=== PATIENT | female | born 1960 | race Caucasian/White ===

== ENCOUNTER 2017-03-24 14:59 | Inpatient (IN) | payer MEDICAID, SELFPAY ==
[2017-03-24 15:00] VITALS: BP 118/72; PULSE 118; RESP 24; TEMP 36.9; O2SAT 98; BMI 33.3
--- NOTE | 2017-03-24 15:12 | CT_ITS ---
CT abdomen pelvis wo con Ordering Physician: Duran Wagner MD. Patient Age: 56 years: Female HISTORY: No specific history given by patient ITS. : fall, lower back pain abdominal pain unable to get good history of Fall with lower back pain middle status changes. Patient sedated for the scan. Combative. TECHNIQUE: Helical CT scanning performed the abdomen pelvis with no oral nor IV contrast utilized. COMPARISON :None FINDINGS There is motion artifact on this scan but this feature does not significantly interfere with interpretation of internal structures but does interfere with evaluating osseous pelvis.. Lung bases appear clear with no active disease. Abdomen/pelvis. Lack of oral and IV contrast decreases sensitivity,. Liver. No focal lesion. diffuse fatty changes. A generous left lobe extends across midline to reside anterior to the spleen.Slightly scalloped contour of the liver in some areas raises question of early cirrhotic changes. Correlation required. In fact and question there could be some early developing portal venous collaterals medial to the spleen inferior to the left adrenal. These can be better evaluated postcontrast of renal function improves Spleen. Upper normal to borderline increased overall volume.. 15 cm height near 10 mm AP and 9 cm transverse. Pancreas. Unremarkable on this limited noncontrast study. Previous cholecystectomy. No bili ductal dilatation evident. Kidneys. No urinary tract calculi nor obstruction. Ureters unremarkable GI tract. No bowel dilatation or obstruction. Diverticulosis most extensive at the sigmoid colon with scattered diverticuli throughout the left colon. Minimal stool majority of colon. Moderate stool rectum. Small bowel appears normal. No evidence of appendicitis. Osseous no acute findings in the spine.. AP view of hips unremarkable. Motion artifact most likely accounts for irregularity at the region of acetabulum and elsewhere at pelvis bilateral. Pelvis. Long thin uterus. No adnexal masses. Moderate distended bladder ======= IMPRESSION: ======= 1. No discrete acute findings abdomen or pelvis 2.. Fatty changes with possible early cirrhotic changes liver: ... Slightly scalloped margin in some portions of liver may reflect early cirrhotic change. Requires clinical correlation. ... Borderline enlargement spleen, spleen which measures 15 cm length maximally but modest in the other dimensions . Also Question some early portal venous collaterals medial to the spleen 2. Diverticulosis most evident sigmoid and left colon but no diverticulitis 3. No evidence of appendicitis
--- NOTE | 2017-03-24 15:13 | PC.NURSE ---
pt to ct
--- NOTE | 2017-03-24 15:22 | PC.NURSE ---
PT BROUGHT BACK TO ROOM FROM CT, RAD STAFF STATED UNABLE TO OBTAIN CTS ON PT AT THIS TIME R/T PT WILL NOT HOLD STILL FOR SCANS. ER AWARE AND HAS PLACED ORDERS FOR MEDICATIONS FOR PT.
--- NOTE | 2017-03-24 15:41 | XR_ITS ---
XR chest AP Ordering Physician: Duran Wagner MD Patient Age: 56 years: Female HISTORY: ITS.REASON: COUGH TECHNIQUE: AP upright chest. COMPARISON : FINDINGS No focal pneumonia. Slight coarsening markings reflecting the distal technique on today's study with no definitive focal pneumonia There is question of a vague round density projected over the anterior third rib 9 mm size.. I believe this was present a old chest films of the helpful to confirm stability as it could merely be a granuloma. However with no prior CXR studies this will warrant follow-up CT chest subsequently possibly as outpatient. Mild cardiomegaly. No CHF Thelma and mediastinal structures satisfactory. Mild undulation of the lateral seventh rib likely reflects an old healed fracture. IMPRESSION: --------- 1. No focal pneumonia. Mild Cardiomegaly.. No CHF 2. Suspect Subtle lung nodules bilateral. Nonspecific ... Vague 9 mm round nodule at right upper chest, projected over right anterior third rib.. ... On Final review I question there could be a similar 1 cm left lung nodule (vs vascular structure) projected over the posterior LEFT seventh rib. Comparison to any outside old chest films may be helpful, but if none available would suggest CT chest to further evaluate 3. Old healed left rib fracture noted
[2017-03-24 15:56] LABS: Basophils # 0.1 K/mm3 (0-0.2); Basophils % 0.3 % (0.1-2.0); Eosinophils # 0.1 K/mm3 (0.0-0.4); Eosinophils % 0.6 % (0.1-12.0); Hematocrit 44.2 % (37.0-47.0); Lymphocytes # 0.9 K/mm3 (0.7-4.5); Mean Corpuscular HGB Conc 33.9 g/dL (31.8-35.4); Mean Corpuscular Hemoglobin 31.5 pg (27.0-31.2); Mean Corpuscular Volume 92.7 fl (81-99); Mean Platelet Volume 8.9 fl (7.4-10.4); Monocytes # 0.7 K/mm3 (0.1-1.0); Monocytes % 4.2 % (1.7-9.3); Neutrophils # 13.9 K/mm3 (1.8-7.8); Platelet Count 106 K/mm3 (142-424); Red Blood Count 4.77 M/mm3 (4.20-5.40); Red Cell Distribution Width 13.4 % (11.5-17.5); White Blood Count 15.7 K/mm3 (4.8-10.8)
[2017-03-24 15:56] LABS: POC Glucose,Bedside 81 mg/dL
--- NOTE | 2017-03-24 15:57 | PC.NURSE ---
PT TO CT AGAIN AT THIS TIME.
[2017-03-24 16:01] LABS: MANUAL DIFFERENTIAL MANUAL DIFFERENTIAL (MANUAL DIFF)
--- NOTE | 2017-03-24 16:03 | CT_ITS ---
CT HEAD/BRAIN wo contrast Helical acquisition with reconstruction images in 3 planes Ordering Physician: Duran Wagner MD Patient Age: 56 years: Female HISTORY: ITS.REASON: AMSfall. Back pain no status change. Patient was sedated for scant TECHNIQUE: Helical thin section CT scanning head was performed due to the the patient's motion. From these acquired helical images, reconstruction axial, sagittal and coronal images created/ performed. Both Brain and bone windows in the axial plane submitted-76 CPT COMPARISON: No previous head CT studies FINDINGS. No acute intracranial findings. No hemorrhage. No mass. No territorial infarct. No extra-axial or subdural collection. Mild cerebral atrophy most evident towards convexity to left of midline as seen on coronal & sagittal view noted. Question some mild chronic small vessel ischemic gliotic changes within deep white matter at periventricular regions. Equivocal Posterior fossa. There is minimal linear calcification which related to choroid which continues towards and through foraminaLuska bilateral. . The skull appears intact no fracture evident IMPRESSION------- No acute intracranial findings. No hemorrhage evident. No Subdural or extra-axial collection The skull is intact . Minor cerebral atrophy most evident towards convexity . Suspect early, mild chronic small vessel deep white matter ischemic gliotic changes.
[2017-03-24 16:06] LABS: Alanine Aminotransferase 45 U/L (12-78); Albumin/Globulin Ratio 0.8 (1.1-1.8); Alkaline Phosphatase 85 U/L (46-116); Amylase 13 U/L (25-125); Anion Gap 17.2 mEq/L (5-15); Aspartate Amino Transferase 57 U/L (15-37); Blood Urea Nitrogen 34 mg/dL (7-18); Calcium 8.8 mg/dL (8.5-10.1); Carbon Dioxide 24 mmol/L (21.0-32.0); Chloride 102 mmol/L (98-107); Creatinine Clearance Estimated 49 mL/min (0-300); Creatinine,Serum 1.84 mg/dL (0.55-1.02); Estimated Glomerular Filt Rate 28 ml/min (>60); GFR (African American) 34 ML/MIN (>60); Glucose 92 mg/dL (74-106); Lipase 68 u/L (73-393); Potassium 4.2 mmoL/L (3.5-5.1); Sodium 139 mmol/L (136-145)
[2017-03-24 16:07] LABS: Ammonia 19 umol/L (19-54)
[2017-03-24 16:36] LABS: Lymphocytes % 14 % (10-50); Monocytes % 11 % (2-9); Neutrophils % 61 % (42-76); Platelet Estimate Marked Decrease; RBC Morphology Normal; Total Cells Counted 100
--- NOTE | 2017-03-24 16:54 | HMH.EDGENADL ---
ED Disposition Clinical Impression: Agitation Reactive airway disease with acute exacerbation Qualifiers: Asthma severity: mild Asthma persistence: persistent Qualified Code(s): J45.31 - Mild persistent asthma with (acute) exacerbation Acute bronchitis Qualifiers: Bronchitis organism: unspecified organism Qualified Code(s): J20.9 - Acute bronchitis, unspecified UTI (urinary tract infection) Qualifiers: Urinary tract infection type: acute cystitis Hematuria presence: without hematuria Qualified Code(s): N30.00 - Acute cystitis without hematuria Disposition: Admitted As Inpatient Condition on Discharge: Good Time of Disposition: 18:13 - Critical Care Critical Care Time: No Attestation: On 03/24/17, the high probability of a clinically significant, sudden or life threatening deterioration of the following system(s) required my full and direct attention, intervention and personal management. The time I documented below is in addition to time spent performing reported procedures but includes the following listed in this critical care notation. Medical Decision Making - Medical Records Medical records reviewed: Yes: I reviewed the patient's medical records. Vital Signs: 03/24/17 15:00 03/24/17 17:15 03/24/17 17:44 Temperature 98.4 F 98.4 F Temperature Source Oral Oral Pulse Rate 110 H Pulse Rate [Right Brachial] 118 H 97 H Respiratory Rate 24 22 Blood Pressure Blood Pressure [Left Arm] 118/72 91/55 Blood Pressure Mean [Left Arm] 87 67 Blood Pressure Source Blood Pressure Source [Left Arm] Automatic Cuff Blood Pressure Position Blood Pressure Position [Left Arm] Sitting 02 Sat by Pulse Oximetry 98 93 L Oxygen Delivery Method Room Air Room Air 03/24/17 19:05 Temperature 98.4 F Temperature Source Pulse Rate 116 H Pulse Rate [Right Brachial] Respiratory Rate 22 Blood Pressure 116/86 Blood Pressure [Left Arm] Blood Pressure Mean [Left Arm] Blood Pressure Source Manual Cuff/ Doppler Blood Pressure Source [Left Arm] Blood Pressure Position Sitting Blood Pressure Position [Left Arm] 02 Sat by Pulse Oximetry Oxygen Delivery Method Room Air - Lab Data Lab Results 03/24/17 15:30: WBC 15.7 H, RBC 4.77, Hgb 15.0, Hct 44.2, MCV 92.7, MCH 31.5 H, MCHC 33.9, RDW 13.4, Plt Count 106 L, MPV 8.9, Neut % (Auto) 89.0 H, Lymph % (Auto) 6.0 L, [place] % (Auto) 4.2, Eos % (Auto) 0.6, Baso % (Auto) 0.3, Neut # (Auto) 13.9 H, Lymph # (Auto) 0.9, [place] # (Auto) 0.7, Eos # (Auto) 0.1, Baso # (Auto) 0.1, Total Counted 100, Neutrophils % (Manual) 61, Band Neutrophils % 12.0 H, Lymphocytes % (Manual) 14, Monocytes % (Manual) 11 H, Metamyelocytes % 2.0 H, Platelet Estimate Marked decrease, RBC Morphology Normal 03/24/17 15:43: POC Glucose 81 03/24/17 15:45: Sodium 139, Potassium 4.2, Chloride 102, Carbon Dioxide 24, Anion Gap 17.2 H, BUN 34 H, Creatinine 1.84 H, Estimated Creat Clear 49, Estimated GFR 28 L, Est GFR ( Amer) 34 L, Glucose 92, Calcium 8.8, Total Bilirubin 2.0 H, AST 57 H, ALT 45, Alkaline Phosphatase 85, Total Protein 7.0, Albumin 3.0 L, Globulin 4.0 H, Albumin/Globulin Ratio 0.8 L, Amylase 13 L, Lipase 68 L 03/24/17 15:45: Ammonia 19 03/24/17 17:56: Urine Color Dark yellow, Urine Appearance Slightly cloudy, Urine pH 5.5, Ur Specific [place] > 1.030 H, Urine Protein Trace, Urine Glucose (UA) Negative, Urine Ketones Trace, Urine Blood Negative, Urine Nitrate Positive A, Urine Bilirubin 2+ A, Urine Urobilinogen 2.0, Ur Leukocyte Esterase Negative, Urine RBC Occasional, Urine WBC 3-5, Ur Squamous Epith Cells Occasional, Urine Bacteria 3+, Hyaline Casts 10-20 03/24/17 17:56: Urine Opiates Screen Negative, Ur Barbituates Screen Negative, Ur Phencyclidine Scrn Negative, Ur Amphetamines Screen Negative, U Methamphetamines Scrn Negative, U Benzodiazepines Scrn Negative, Urine Cocaine Screen Negative, U Marijuana (THC) Screen Negative Result diagrams: 03/25/17 10:55 03/25/17 10:55 Orders (
[2017-03-24 17:15] VITALS: BP 91/55; PULSE 97; RESP 22; TEMP 36.9; O2SAT 93
[2017-03-24 17:44] VITALS: PULSE 110
--- NOTE | 2017-03-24 18:07 | PC.NURSE ---
SAFETY ATTENDANT PAGED DR. POOL WHO IS [employer] MANAGER FOR DR. LANDEROS
[2017-03-24 18:09] LABS: Amphetamine/Metha Screen,Urine Negative ng/mL (<1000); Barbiturates Screen,Urine Negative ng/mL (<200); Benzodiazepines Screen,Urine Negative ng/mL (200); Cannabinoid Screen,Urine Negative ng/mL (<50); Cocaine Screen,Urine Negative ng/g (<300); Methadone Screen,Urine Negative ng/mL (<300); Opiate Screen,Urine Negative ng/mL (<300); Phencyclidine Screen,Urine Negative ng/mL (<25)
[2017-03-24 18:11] LABS: Bacteria,Urine 3+ /lpf; Microscopic, Urine URINE MICROSCOPIC (MICROSCOPIC); RBC,Urine Occasional #/hpf (0-3); Squamous Epithelial Cell,Urine Occasional #/hpf (0-5)
[2017-03-24 18:12] LABS: Appearance,Urine Slightly Cloudy (Clear); Blood, Urine Negative (Negative); Color,Urine Dark Yellow (Yellow); Glucose,Urine (UA) Negative (Negative); Ketones,Urine Trace (Negative); Nitrate,Urine Positive (Negative); PH,Urine 5.5 (5.0-8.5); Protein,Urine Trace (Negative); Specific Gravity, Urine > 1.030 (1.005-1.030)
[2017-03-24 18:13] LABS: Bilirubin,Urine 2+ (Negative); Leukocyte Esterase,Urine Negative (Negative)
--- NOTE | 2017-03-24 18:25 | PC.NURSE ---
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 pt to be placed in 212 for reactive airway disease and acute bronchitis for observation by dr hahn for dr ku. 2nd floor notiifed at 1824
--- NOTE | 2017-03-24 18:42 | PC.NURSE ---
REPORT CALLED TO JULY JUAREZ ON SECOND FLOOR AT THIS TIME.
[2017-03-24 19:05] VITALS: BP 116/86; PULSE 116; RESP 22; TEMP 36.9; O2SAT 94
[2017-03-24 21:57] VITALS: BP 103/67; PULSE 95; RESP 22; TEMP 36.3; O2SAT 97; BMI 37.0
[2017-03-25] VITALS (9 sets, daily range): BP systolic 96–136; BP diastolic 54–80; PULSE 71–110; RESP 20–22; TEMP 36.4–36.6; O2SAT 90–93
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
--- NOTE | 2017-03-25 04:29 | PC.NURSE ---
Pt confused at this time. No family here at this time. Brochure given and placed in packet for family to review upon visitation
--- NOTE | 2017-03-25 05:30 | PC.NURSE ---
PT FOUND ON FLOOR AT 0510 STATING SHE HAD GOTTEN OUT OF BED AND WANTED TO LAY ON THE FLOOR, PT DENYING PAIN, VSS. (LETI) NOTIFIED AT 0515 OF INCIDENT. NO FURTHER ORDERS. PT STABLE, DENYING PAIN OR DISCOMFORT, UP TO CHAIR AT THIS TIME. NO ACUTE DISTRESS NOTED. WILL CONTINUE TO MONITOR.
--- NOTE | 2017-03-25 07:33 | PC.NURSE ---
REPORT GIVEN TO Jaylene COREAS
--- NOTE | 2017-03-25 07:36 | PC.NURSE ---
REPORT GIVEN TO Gunnar SANDOVAL RN
--- NOTE | 2017-03-25 08:03 | PC.NURSE ---
0715 - Received report from Rebekah Gillis RN
--- NOTE | 2017-03-25 09:07 | HMH.PHAVTE ---
[facility] Pharmacy VTE Monitoring - Patient Demographics Admission date: 03/24/17 Report Date: 03/25/17 Time: 09:08 Allergies/Adverse Reactions: No Known Allergies Allergy (Verified 03/24/17 15:00) Height: 1.63 m Weight: 97.778 kg Patient Problems: Current Active Problems Reactive airway disease with acute exacerbation (Acute) Acute bronchitis (Acute) UTI (urinary tract infection) (Acute) Agitation (Acute) - VTE Risk Labs: VTE Related Lab Results Hgb 15.0 g/dL (12.2-16.2) 03/24/17 15:30 Hct 44.2 % (37.0-47.0) 03/24/17 15:30 Plt Count 106 K/mm3 (142-424) L 03/24/17 15:30 BUN 34 mg/dL (7-18) H 03/24/17 15:45 Creatinine 1.84 mg/dL (0.55-1.02) H 03/24/17 15:45 Estimated Creat Clear 49 mL/min (0-300) 03/24/17 15:45 - Prophylaxis VTE Prophylaxis Ordered?: Yes Types of VTE Prophylaxis: TEDS Knee High Location of Applied Device: Bilateral Lower Extremeties - VTE Diagnosis Confirmed Treatment or plan recommended: Continue Current Treatment
--- NOTE | 2017-03-25 10:05 | HMH.HP ---
*Admission Date: 03/24/17 *Chief complaint: sob *History of present illness: this [facility]f was [facility] with sob and dec loc and no chest pain -pt with reported fall - pt was seen in ed and admitted [facility] History I have reviewed the patient's past medical history: Yes - *Social History Smoking Status: Current every day smoker Tobacco Type: cigarettes Alcohol Intake: never Occupational Status: disabled - Psychiatric History Expresses thoughts of harming self/others: None Suicide Plan Description: No Plan Review of Systems - Review of Systems Review of systems:: pertinent systems reviewed and negative unless documented below - Constitutional Reports weakness - Eyes Denies change in vision - ENT Denies headache(s) - *Cardiovascular Reports shortness of breath - *Respiratory Reports shortness of breath, Denies cough - *Gastrointestinal Denies abdominal pain - Integumentary/Breasts Denies rash - *Neurologic Denies tingling/numbness/burning sensations - Psychiatric Reports anxiety Meds Home Medications Medication Instructions Recorded Confirmed Type Meloxicam [Meloxicam] 15 mg PO DAILY 03/24/17 03/24/17 History PARoxetine HCl [Paroxetine HCl] 30 mg PO DAILY 03/24/17 03/24/17 History Tizanidine HCl [Zanaflex 4mg 4 mg PO DAILY 03/24/17 03/24/17 History tablet] buPROPion HCl [Bupropion Xl] 300 mg PO DAILY 03/24/17 03/24/17 History hydrOXYzine HCl [Hydroxyzine HCl] 25 mg PO Q4HP PRN 03/24/17 03/24/17 History risperiDONE [Risperidone] 3 mg PO HS 03/24/17 03/24/17 History Allergies Allergy/AdvReac Type Severity Reaction Status Date / Time No Known Allergies Allergy Verified 03/24/17 15:00 Exam Vital signs and Labs for Last 24 Hours: Temp Pulse Resp BP Pulse Ox 97.5 F L 81 20 136/80 93 L 03/25/17 04:15 03/25/17 09:58 03/25/17 04:15 03/25/17 04:15 03/25/17 04:15 I & O for Last 24 hours: Intake & Output 03/22/17 03/23/17 03/24/17 03/25/17 11:59 11:59 11:59 11:59 Intake Total 390 / 390 Balance 390 / 390 Weight 215 lb 9 oz - Constitutional no acute distress - *Routine HEENT Exam Head: Present: normocephalic Eye: Present: EOMI, PERRL ENT: Present: mucous membranes dry - *Routine Neck Exam Present: supple - *Routine Respiratory Exam Present: decreased breath sounds. Absent: respiratory distress - *Routine Cardiovascular Exam Present: murmur - *Routine Abdominal Exam Present: soft - *Routine Extremities Exam Present: full ROM - *Routine Skin Exam Present: intact - *Routine Neurological Exam Present: alert, oriented X3, CN II-XII intact - Routine Psychiatric Exam Present: normal affect Assessment and Plan (1) Reactive airway disease with acute exacerbation Current visit: Yes Status: Acute Qualifiers: Asthma severity: mild Asthma persistence: persistent Qualified Code(s): J45.31 - Mild persistent asthma with (acute) exacerbation Category: Medical Code(s): J45.901 - Unspecified asthma with (acute) exacerbation (2) UTI (urinary tract infection) Current visit: Yes Status: Acute Qualifiers: Urinary tract infection type: acute cystitis Hematuria presence: without hematuria Qualified Code(s): N30.00 - Acute cystitis without hematuria Category: Medical Code(s): N39.0 - Urinary tract infection, site not specified (3) Renal insufficiency Current visit: Yes Status: Acute Category: Medical Code(s): N28.9 - Disorder of kidney and ureter, unspecified (4) Fall Current visit: Yes Status: Acute Category: Medical Code(s): W19.XXXA - Unspecified fall, initial encounter
--- NOTE | 2017-03-25 10:10 | P.HP_ITS ---
*Admission Date: 03/24/17 *Chief complaint: sob *History of present illness: this wf was sent from [facility] with sob and dec loc and no chest pain -pt with reported fall - pt was seen in ed and admitted [facility] History I have reviewed the patient's past medical history: Yes - *Social History Smoking Status: Current every day smoker Tobacco Type: cigarettes Alcohol Intake: never Occupational Status: disabled - Psychiatric History Expresses thoughts of harming self/others: None Suicide Plan Description: No Plan Review of Systems - Review of Systems Review of systems:: pertinent systems reviewed and negative unless documented below - Constitutional Reports weakness - Eyes Denies change in vision - ENT Denies headache(s) - *Cardiovascular Reports shortness of breath - *Respiratory Reports shortness of breath, Denies cough - *Gastrointestinal Denies abdominal pain - Integumentary/Breasts Denies rash - *Neurologic Denies tingling/numbness/burning sensations - Psychiatric Reports anxiety Meds Home Medications Medication Instructions Recorded Confirmed Type Meloxicam [Meloxicam] 15 mg PO DAILY 03/24/17 03/24/17 History PARoxetine HCl [Paroxetine HCl] 30 mg PO DAILY 03/24/17 03/24/17 History Tizanidine HCl [Zanaflex 4mg 4 mg PO DAILY 03/24/17 03/24/17 History tablet] buPROPion HCl [Bupropion Xl] 300 mg PO DAILY 03/24/17 03/24/17 History hydrOXYzine HCl [Hydroxyzine HCl] 25 mg PO Q4HP PRN 03/24/17 03/24/17 History risperiDONE [Risperidone] 3 mg PO HS 03/24/17 03/24/17 History Allergies Allergy/AdvReac Type Severity Reaction Status Date / Time No Known Allergies Allergy Verified 03/24/17 15:00 Exam Vital signs and Labs for Last 24 Hours: Temp Pulse Resp BP Pulse Ox 97.5 F L 81 20 136/80 93 L 03/25/17 04:15 03/25/17 09:58 03/25/17 04:15 03/25/17 04:15 03/25/17 04:15 I & O for Last 24 hours: Intake & Output 03/22/17 03/23/17 03/24/17 03/25/17 11:59 11:59 11:59 11:59 Intake Total 390 / 390 Balance 390 / 390 Weight 215 lb 9 oz - Constitutional no acute distress - *Routine HEENT Exam Head: Present: normocephalic Eye: Present: EOMI, PERRL ENT: Present: mucous membranes dry - *Routine Neck Exam Present: supple - *Routine Respiratory Exam Present: decreased breath sounds. Absent: respiratory distress - *Routine Cardiovascular Exam Present: murmur - *Routine Abdominal Exam Present: soft - *Routine Extremities Exam Present: full ROM - *Routine Skin Exam Present: intact - *Routine Neurological Exam Present: alert, oriented X3, CN II-XII intact - Routine Psychiatric Exam Present: normal affect Assessment and Plan (1) Reactive airway disease with acute exacerbation Current visit: Yes Status: Acute Qualifiers: Asthma severity: mild Asthma persistence: persistent Qualified Code(s): J45.31 - Mild persistent asthma with (acute) exacerbation Category: Medical Code(s): J45.901 - Unspecified asthma with (acute) exacerbation (2) UTI (urinary tract infection) Current visit: Yes Status: Acute Qualifiers: Urinary tract infection type: acute cystitis Hematuria presence: without hematuria Qualified Code(
[2017-03-25 11:09] LABS: Basophils % 0.2 % (0.1-2.0); Eosinophils # 0.1 K/mm3 (0.0-0.4); Eosinophils % 0.5 % (0.1-12.0); Hematocrit 43.3 % (37.0-47.0); Hemoglobin 14.9 g/dL (12.2-16.2); Lymphocytes # 0.7 K/mm3 (0.7-4.5); Lymphocytes % 8.7 K/mm3 (10-50); Mean Corpuscular HGB Conc 34.3 g/dL (31.8-35.4); Mean Corpuscular Volume 93.3 fl (81-99); Mean Platelet Volume 9.4 fl (7.4-10.4); Monocytes # 0.3 K/mm3 (0.1-1.0); Monocytes % 3.7 % (1.7-9.3); Neutrophils # 7.4 K/mm3 (1.8-7.8); Neutrophils % 86.8 % (37.0-80.0); Platelet Count 93 K/mm3 (142-424); Red Blood Count 4.64 M/mm3 (4.20-5.40); Red Cell Distribution Width 13.5 % (11.5-17.5); White Blood Count 8.5 K/mm3 (4.8-10.8)
[2017-03-25 11:16] LABS: MANUAL DIFFERENTIAL MANUAL DIFFERENTIAL (MANUAL DIFF)
[2017-03-25 11:21] LABS: Anion Gap 10.9 mEq/L (5-15); Blood Urea Nitrogen 49 mg/dL (7-18); Carbon Dioxide 28 mmol/L (21.0-32.0); Chloride 103 mmol/L (98-107); Creatinine Clearance Estimated 78 mL/min (0-300); Creatinine,Serum 1.25 mg/dL (0.55-1.02); Estimated Glomerular Filt Rate 44 ml/min (>60); GFR (African American) 54 ML/MIN (>60); Glucose 125 mg/dL (74-106); Potassium 3.9 mmoL/L (3.5-5.1); Sodium 138 mmol/L (136-145); Troponin I < 0.02 ng/ml (0.00-0.06)
--- NOTE | 2017-03-25 11:24 | HMH.PTEV ---
Physical Therapy Evaluation Rehab PT IP Evaluation Start: 03/25/17 10:03 Freq: ONCE Status: Active Protocol: Document 03/25/17 10:30 PHORLIZ (Rec: 03/25/17 11:24 PHORNE [id number]) Subjective/History History History 56 yof adm to [facility] with weakness and bronchitis. Pt resides at [facility]. Subjective Subjective Pt with no c/o this am. Rehab PT IP Eval Objective Appearance Patient Behavior Appropriate Patient Orientation Person Place Difficulty following instructions none Speech Pattern Clear Ambulation Patient Able to Ambulate Yes Ambulation Observation IP General Gait Pattern Observation Wide Based Gait Shuffling Step Ambulation Distance (feet) 20 Ambulation Assistive Device None Balance Ability to Arise Able, w/o using arms Sitting Balance Steady, safe Standing Balance Narrow stance w/o support Dynamic Sitting Balance Ability Normal Dynamic Standing Balance Ability Fair Transfers Bed Transfer Ability Independent Chair Transfer Ability Supervision/Stand by Sit to Stand Bed Transfer Ability Supervision/Stand by Sit to Stand Chair Transfer Ability Supervision/Stand by ROM All Extremities PT ROM Status WFL MMT All Extremities PT MMT WFL Rehab PT IP prob,goals,plan Problems Date of Evaluation: 03/25/17 Rehab Potential Rehab Potential Good Discharge Plan PT Discharge Plan Pt is appropriate to return to personal intermediate once medically stable. G -code Required Yes Eval Complexity Eval Charge Codes 81014 - Moderate Complexity G Codes PT Current Status Mobility PT Current Status Modifier CI-At least 1% but less than 20% impaired, limited or restricted PT Goal Status Mobility PT Goal Status Modifer CI-At least 1% but less than 20% impaired, limited or restricted PHYSICIAN CERTIFICATION: I certify the specified therapy services for Yolanda Mosley are required, authorized, and reviewed every 30 days.
--- NOTE | 2017-03-25 11:25 | HMH.DCSUM ---
General - General Admission date: 03/24/17 Discharge date: 03/25/17 HPI HPI: this wf was sent from [facility] with sob and dec loc and no chest pain -pt with reported fall - pt was seen in ed and admitted Objective Vital signs: Temp Pulse Resp BP Pulse Ox 97.5 F L 81 20 136/80 93 L 03/25/17 04:15 03/25/17 09:58 03/25/17 04:15 03/25/17 04:15 03/25/17 04:15 no acute distress - *Routine HEENT Exam Head: Present: normocephalic Eye: Present: EOMI, PERRL ENT: Present: mucous membranes dry - *Routine Neck Exam Absent: JVD - *Routine Respiratory Exam Absent: respiratory distress - *Routine Cardiovascular Exam Present: murmur - *Routine Abdominal Exam Present: soft. Absent: tenderness, distended, rebound - *Routine Extremities Exam Absent: cyanosis, Thuan's sign - *Routine Skin Exam Present: intact. Absent: lesions - *Routine Neurological Exam Present: alert, oriented X3, CN II-XII intact - Routine Psychiatric Exam Present: normal affect Hospital Course Hospital Course: pt did better with ivf and was able to maintain pulse oxy and seen by therapy- pt with improved wbc and stable renal function Results Labs on day of discharge: Labs from last 24 hours 03/25/17 03/25/17 10:55 10:55 WBC 8.5 D RBC 4.64 Hgb 14.9 Hct 43.3 MCV 93.3 MCH 32.0 H MCHC 34.3 RDW 13.5 Plt Count 93 L MPV 9.4 Neut % (Auto) 86.8 H Lymph % (Auto) 8.7 L [place] % (Auto) 3.7 Eos % (Auto) 0.5 Baso % (Auto) 0.2 Neut # (Auto) 7.4 Lymph # (Auto) 0.7 [place] # (Auto) 0.3 Eos # (Auto) 0.1 Baso # (Auto) 0.0 Sodium 138 Potassium 3.9 Chloride 103 Carbon Dioxide 28 Anion Gap 10.9 BUN 49 H D Creatinine 1.25 H D Estimated Creat Clear 78 Estimated GFR 44 L Est GFR ( Amer) 54 L D Glucose 125 H D Troponin I < 0.02 DS: Diagnosis - Discharge Diagnosis (1) Reactive airway disease with acute exacerbation Status: Acute (2) UTI (urinary tract infection) Status: Acute (3) Renal insufficiency Status: Acute (4) Fall Status: Acute Meds Home Medications Medication Instructions Recorded Confirmed Type Meloxicam [Meloxicam] 15 mg PO DAILY 03/24/17 03/24/17 History PARoxetine HCl [Paroxetine HCl] 30 mg PO DAILY 03/24/17 03/24/17 History Tizanidine HCl [Zanaflex 4mg 4 mg PO DAILY 03/24/17 03/24/17 History tablet] buPROPion HCl [Bupropion Xl] 300 mg PO DAILY 03/24/17 03/24/17 History hydrOXYzine HCl [Hydroxyzine HCl] 25 mg PO Q4HP PRN 03/24/17 03/24/17 History risperiDONE [Risperidone] 3 mg PO HS 03/24/17 03/24/17 History Allergies Allergy/AdvReac Type Severity Reaction Status Date / Time No Known Allergies Allergy Verified 03/24/17 15:00 Discharge Plan - Patient Discharge Instructions ACTIVITY: Continue current activity DIET: continue same diet Additional Instructions: will follow labs at [facility] - Follow up Plan Follow up with: Jenaro Joseph MD [Primary Care Provider] - Disposition: Home, Self-Long Term Medications: Home Medications Medication Instructions Recorded Confirmed Type Meloxicam [Meloxicam] 15 mg PO DAILY 03/24/17 03/24/17 History PARoxetine HCl [Paroxetine HCl] 30 mg PO DAILY 03/24/17 03/24/17 History Tizanidine HCl [Zanaflex 4mg 4 mg PO DAILY 03/24/17 03/24/17 History tablet] buPROPion HCl [Bupropion Xl] 300 mg PO DAILY 03/24/17 03/24/17 History hydrOXYzine HCl [Hydroxyzine HCl] 25 mg PO Q4HP PRN 03/24/17 03/24/17 History risperiDONE [Risperidone] 3 mg PO HS 03/24/17 03/24/17 History Prescriptions/Medication Reconciliation: Continue Tizanidine HCl [Zanaflex 4mg tablet] 4 mg PO DAILY risperiDONE [Risperidone] 3 mg PO HS PARoxetine HCl [Paroxetine HCl] 30 mg PO DAILY hydrOXYzine HCl [Hydroxyzine HCl] 25 mg PO Q4HP PRN PRN Reason: Agitation buPROPion HCl [Bupropion Xl] 300 mg PO DAILY Discontinued Meloxicam [Meloxi
--- NOTE | 2017-03-25 11:29 | P.DS_ITS ---
General - General Admission date: 03/24/17 Discharge date: 03/25/17 HPI HPI: this [facility]f was [facility] with sob and dec loc and no chest pain -pt with reported fall - pt was seen in ed and admitted Objective Vital signs: Temp Pulse Resp BP Pulse Ox 97.5 F L 81 20 136/80 93 L 03/25/17 04:15 03/25/17 09:58 03/25/17 04:15 03/25/17 04:15 03/25/17 04:15 no acute distress - *Routine HEENT Exam Head: Present: normocephalic Eye: Present: EOMI, PERRL ENT: Present: mucous membranes dry - *Routine Neck Exam Absent: JVD - *Routine Respiratory Exam Absent: respiratory distress - *Routine Cardiovascular Exam Present: murmur - *Routine Abdominal Exam Present: soft. Absent: tenderness, distended, rebound - *Routine Extremities Exam Absent: cyanosis, Thuan's sign - *Routine Skin Exam Present: intact. Absent: lesions - *Routine Neurological Exam Present: alert, oriented X3, CN II-XII intact - Routine Psychiatric Exam Present: normal affect Hospital Course Hospital Course: pt did better with ivf and was able to maintain pulse oxy and seen by therapy- pt with improved wbc and stable renal function Results Labs on day of discharge: Labs from last 24 hours 03/25/17 03/25/17 10:55 10:55 WBC 8.5 D RBC 4.64 Hgb 14.9 Hct 43.3 MCV 93.3 MCH 32.0 H MCHC 34.3 RDW 13.5 Plt Count 93 L MPV 9.4 Neut % (Auto) 86.8 H Lymph % (Auto) 8.7 L [place] % (Auto) 3.7 Eos % (Auto) 0.5 Baso % (Auto) 0.2 Neut # (Auto) 7.4 Lymph # (Auto) 0.7 [place] # (Auto) 0.3 Eos # (Auto) 0.1 Baso # (Auto) 0.0 Sodium 138 Potassium 3.9 Chloride 103 Carbon Dioxide 28 Anion Gap 10.9 BUN 49 H D Creatinine 1.25 H D Estimated Creat Clear 78 Estimated GFR 44 L Est GFR ( Amer) 54 L D Glucose 125 H D Troponin I < 0.02 DS: Diagnosis - Discharge Diagnosis (1) Reactive airway disease with acute exacerbation Status: Acute (2) UTI (urinary tract infection) Status: Acute (3) Renal insufficiency Status: Acute (4) Fall Status: Acute Meds Home Medications Medication Instructions Recorded Confirmed Type Meloxicam [Meloxicam] 15 mg PO DAILY 03/24/17 03/24/17 History PARoxetine HCl [Paroxetine HCl] 30 mg PO DAILY 03/24/17 03/24/17 History Tizanidine HCl [Zanaflex 4mg 4 mg PO DAILY 03/24/17 03/24/17 History tablet] buPROPion HCl [Bupropion Xl] 300 mg PO DAILY 03/24/17 03/24/17 History hydrOXYzine HCl [Hydroxyzine HCl] 25 mg PO Q4HP PRN 03/24/17 03/24/17 History risperiDONE [Risperidone] 3 mg PO HS 03/24/17 03/24/17 History Allergies Allergy/AdvReac Type Severity Reaction Status Date / Time No Known Allergies Allergy Verified 03/24/17 15:00 Discharge Plan - Patient Discharge Instructions ACTIVITY: Continue current activity DIET: continue same diet Additional Instructions: will follow labs at [facility] - Follow up Plan Follow up with: Jenaro Joseph
[2017-03-25 11:55] LABS: Lymphocytes % 8 % (10-50); Monocytes % 7 % (2-9); Neutrophils % 83 % (42-76); Platelet Estimate Moderate Decrease; RBC Morphology Normal; Total Cells Counted 100
--- NOTE | 2017-03-25 12:17 | PC.NURSE ---
1214 - Report called to Olimpia @ [facility].
--- NOTE | 2017-03-25 12:35 | SW/DCPLANNER ---
Patient is currently ready for discharge back to [facility]. I have spoke with Pedro from [facility] and they are ready for this patient to come back. However, [facility] stated that they are not transporting patients today due to weather. Plan is for patient to go back to [facility] tomorrow.
--- NOTE | 2017-03-25 12:45 | PC.NURSE ---
Pt is to be discharged today and confirmed transportation /c Elin [employer]app [employer]. Per Elin, transportation is currently unavailable and pt will remain at [facility] until transportation is available.
--- NOTE | 2017-03-25 13:52 | PC.NURSE ---
Pt drowsy and easily arouses to verbal stimuli. Pt verbalized authorization to restart IV and then returned to resting with eyes closed making snoring noises.
--- NOTE | 2017-03-25 15:39 | PC.NURSE ---
PT ORIENTED TO SELF THIS SHIFT IN NAD. VSS. AFEBRILE. HEART RATE REG. LUNGS /C RHONCHI NOTED SCATTERED THROUGHOUT. PT HAS RESTED MOST OF THIS SHIFT. KNEE HIGH ELENI HOSE IN PLACE BLE. PT WAS TO BE DISCHARGED TO [facility] THIS SHIFT AND [employer] IS UNABLE TO SECURE TRANSPORTATION DUE TO INCEMENT WEATHER. IV RESTARTED VIA (L) HAND X1 STICK /C 20G ANGIOCATH. IV SALINE LOCKED AND FLUSHES EASILY /C GOOD BLOOD RETURN. WILL CONTINUE TO MONITOR.
--- NOTE | 2017-03-25 18:45 | PC.NURSE ---
REPORT GIVEN TO Jaylene SHEEHAN RN
--- NOTE | 2017-03-25 20:24 | PC.NURSE ---
rn aware of all vital signs
[2017-03-26] VITALS (13 sets, daily range): BP systolic 94–141; BP diastolic 46–65; PULSE 60–91; RESP 18–22; TEMP 36.5–36.9; O2SAT 81–92
--- NOTE | 2017-03-26 | CA_ITS ---
PROCEDURE: 2-D M-mode and color Doppler study INDICATIONS FOR THE TEST: Chest pain COPD+ Heart Murmur+ Tobacco Smoking+ Palpitations+ Fatigue Syncope? Edema+ Hypertension+Diabetes Mellitus+ Rheumatic Fever SOB+GAINES Obesity+Hyperlipidemia+ Family History HD Additional History Reactive airway disease, patient was sitting upright in a recliner, images were obtained in this limited position. PATIENT INFORMATION HEIGHT: 64 WEIGHT: 215 GENDER: Female B/P: 136/80 2-D/M-MODE INTERPRETATION: 2-D MEASUREMENTS OBSERVED VALUES IN CMS Right Ventricular Dimension (RVDd) 1.9 Interventricular Septum (Thickness)(IVsd) 0.8 Left Ventricular Internal Dimensions(LVIDd) 4.7 Left Ventricular Posterior Wall (Thickness)(LVPWd) 0.9 Aortic Root 2.8 Aortic Cusp Separation 2.0 Left Atrial Dimensions (LAD) 4.4 2D 1. Left atrium is mildly enlarged, left ventricle is normal size, there is mild qualitative concentric left ventricular hypertrophy, visually estimated ejection fraction 55% with no obvious regional wall motion abnormality. 2. The right atrium and right ventricle are relatively normal size and function. 3. The aortic valve is minimally thickened and fibrosed. 4. The mitral valve has mitral calcification, leaflets are minimally thickened. 5. The pulmonic valve is poorly visualized. 6. Tricuspid valve is grossly normal. 7. No significant pericardial effusion noted. DOPPLER INTERROGATION: Doppler interrogation of the aortic, mitral and tricuspid valvular presence of moderate mitral and mild tricuspid regurgitation, tricuspid and jet velocity is insufficient for calculation of the right ventricular systolic pressure, grade 1 diastolic dysfunction seen with tissue Doppler evidence of raised left atrial pressure. CONCLUSION: 1. Mildly enlarged left atrium, normal left ventricular size, mild qualitative concentric left ventricular hypertrophy, visually estimated ejection fraction 55% with no obvious regional wall motion abnormality, grade 1 diastolic dysfunction seen with tissue Doppler evidence of raised left atrial pressure. 2. Mitral annular calcification, mitral leaflets are minimally thickened, there is no mitral stenosis, there is moderate mitral regurgitation. 3. Mild tricuspid regurgitation. 4. No significant pericardial effusion noted.
--- NOTE | 2017-03-26 04:32 | PC.NURSE ---
rn aware of all vitals
--- NOTE | 2017-03-26 04:44 | PC.NURSE ---
PT HAS SLEPT MOST OF SHIFT. WHEN AWAKE, PT EXTEMELY DROWSY. O2 AT 2L PER NC. PT WITH LOOSE COUGH. PT ASSIST OF 2 TO BSC. URINE EXTREMELY DARK IN COLOR.
--- NOTE | 2017-03-26 07:27 | PC.NURSE ---
REPORT GIVEN TO Charline COREAS
--- NOTE | 2017-03-26 09:27 | XR_ITS ---
XR chest 2V HISTORY: ITS.REASON: sob ORDERING PHYSICIAN: Jenaro Joseph MD PATIENT AGE: 56 years COMPARISON: 03/24/2017 FINDINGS: Mild cardiomegaly without failure.. Mild left basilar atelectasis. Previously noted nodule in the right upper lobe and left perihilar region are less apparent on today's exam and could've been due to artifact.. No lobar consolidation or collapse No acute bony abnormalities. IMPRESSION: Cardiomegaly with mild left basilar atelectasis.
--- NOTE | 2017-03-26 09:28 | HMH.ACPN ---
Internal Medicine - PN: Subj *Date: 03/26/17 *Time: 09:28 Interval history: pt with persistant low o2 sat on room air with no chest pain but has changes bs Exam Vital signs and Labs for Last 24 Hours: Temp Pulse Resp BP Pulse Ox 98.5 F 83 22 104/65 88 L 03/26/17 08:00 03/26/17 08:00 03/26/17 08:00 03/26/17 08:00 03/26/17 08:00 Laboratory Results - last 24 hr 03/25/17 10:55: WBC 8.5 D, RBC 4.64, Hgb 14.9, Hct 43.3, MCV 93.3, MCH 32.0 H, MCHC 34.3, RDW 13.5, Plt Count 93 L, MPV 9.4, Neut % (Auto) 86.8 H, Lymph % (Auto) 8.7 L, [place] % (Auto) 3.7, Eos % (Auto) 0.5, Baso % (Auto) 0.2, Neut # (Auto) 7.4, Lymph # (Auto) 0.7, [place] # (Auto) 0.3, Eos # (Auto) 0.1, Baso # (Auto) 0.0, Total Counted 100, Neutrophils % (Manual) 83 H, Band Neutrophils % 2.0, Lymphocytes % (Manual) 8 L, Monocytes % (Manual) 7, Platelet Estimate Moderate decrease, RBC Morphology Normal 03/25/17 10:55: Sodium 138, Potassium 3.9, Chloride 103, Carbon Dioxide 28, Anion Gap 10.9, BUN 49 H D, Creatinine 1.25 H D, Estimated Creat Clear 78, Estimated GFR 44 L, Est GFR ( Amer) 54 L D, Glucose 125 H D, Troponin I < 0.02 I & O for Last 24 hours: Intake & Output 03/23/17 03/24/17 03/25/17 03/26/17 11:59 11:59 11:59 11:59 Intake Total 390 / 390 60 / 60 Balance 390 / 390 60 / 60 Weight 215 lb 9 oz - Constitutional no acute distress - *Routine HEENT Exam Head: Present: normocephalic Eye: Present: EOMI, PERRL ENT: Present: mucous membranes dry - *Routine Neck Exam Absent: JVD - *Routine Respiratory Exam Present: decreased breath sounds, prolonged expiratory phase. Absent: respiratory distress - *Routine Cardiovascular Exam Present: RRR, murmur, S4 - *Routine Abdominal Exam Present: soft - *Routine Extremities Exam Absent: calf tenderness - *Routine Skin Exam Present: intact - *Routine Neurological Exam Present: oriented X3, CN II-XII intact - Routine Psychiatric Exam Present: normal affect Assessment and Plan (1) Reactive airway disease with acute exacerbation Current visit: Yes Status: Acute Qualifiers: Asthma severity: mild Asthma persistence: persistent Qualified Code(s): J45.31 - Mild persistent asthma with (acute) exacerbation Category: Medical Code(s): J45.901 - Unspecified asthma with (acute) exacerbation (2) UTI (urinary tract infection) Current visit: Yes Status: Acute Qualifiers: Urinary tract infection type: acute cystitis Hematuria presence: without hematuria Qualified Code(s): N30.00 - Acute cystitis without hematuria Category: Medical Code(s): N39.0 - Urinary tract infection, site not specified (3) Renal insufficiency Current visit: Yes Status: Acute Category: Medical Code(s): N28.9 - Disorder of kidney and ureter, unspecified (4) Fall Current visit: Yes Status: Acute Category: Medical Code(s): W19.XXXA - Unspecified fall, initial encounter
--- NOTE | 2017-03-26 09:31 | P.PN_ITS ---
Internal Medicine - PN: Subj *Date: 03/26/17 *Time: 09:28 Interval history: pt with persistant low o2 sat on room air with no chest pain but has changes bs Exam Vital signs and Labs for Last 24 Hours: Temp Pulse Resp BP Pulse Ox 98.5 F 83 22 104/65 88 L 03/26/17 08:00 03/26/17 08:00 03/26/17 08:00 03/26/17 08:00 03/26/17 08:00 Laboratory Results - last 24 hr 03/25/17 10:55: WBC 8.5 D, RBC 4.64, Hgb 14.9, Hct 43.3, MCV 93.3, MCH 32.0 H, MCHC 34.3, RDW 13.5, Plt Count 93 L, MPV 9.4, Neut % (Auto) 86.8 H, Lymph % ( Auto) 8.7 L, [place] % (Auto) 3.7, Eos % (Auto) 0.5, Baso % (Auto) 0.2, Neut # ( Auto) 7.4, Lymph # (Auto) 0.7, [place] # (Auto) 0.3, Eos # (Auto) 0.1, Baso # (Auto ) 0.0, Total Counted 100, Neutrophils % (Manual) 83 H, Band Neutrophils % 2.0, Lymphocytes % (Manual) 8 L, Monocytes % (Manual) 7, Platelet Estimate Moderate decrease, RBC Morphology Normal 03/25/17 10:55: Sodium 138, Potassium 3.9, Chloride 103, Carbon Dioxide 28, Anion Gap 10.9, BUN 49 H D, Creatinine 1.25 H D, Estimated Creat Clear 78, Estimated GFR 44 L, Est GFR ( Amer) 54 L D, Glucose 125 H D, Troponin I < 0.02 I & O for Last 24 hours: Intake & Output 03/23/17 03/24/17 03/25/17 03/26/17 11:59 11:59 11:59 11:59 Intake Total 390 / 390 60 / 60 Balance 390 / 390 60 / 60 Weight 215 lb 9 oz - Constitutional no acute distress - *Routine HEENT Exam Head: Present: normocephalic Eye: Present: EOMI, PERRL ENT: Present: mucous membranes dry - *Routine Neck Exam Absent: JVD - *Routine Respiratory Exam Present: decreased breath sounds, prolonged expiratory phase. Absent: respiratory distress - *Routine Cardiovascular Exam Present: RRR, murmur, S4 - *Routine Abdominal Exam Present: soft - *Routine Extremities Exam Absent: calf tenderness - *Routine Skin Exam Present: intact - *Routine Neurological Exam Present: oriented X3, CN II-XII intact - Routine Psychiatric Exam Present: normal affect Assessment and Plan (1) Reactive airway disease with acute exacerbation Current visit: Yes Status: Acute Qualifiers: Asthma severity: mild Asthma persistence: persistent Qualified Code(s): J45.31 - Mild persistent asthma with (acute) exacerbation Category: Medical Code(s): J45.901 - Unspecified asthma with (acute) exacerbation (2) UTI (urinary tract infection) Current visit: Yes Status: Acute Qualifiers: Urinary tract infection type: acute cystitis Hematuria presence: without hematuria Qualified Code(s): N30.00 - Acute cystitis without hematuria Category: Medical Code(s): N39.0 - Urinary tract infection, site not specified (3) Renal insufficiency Current visit: Yes Status: Acute Category: Medical Code(s): N28.9 - Disorder of kidney and ureter, unspecified (4) Fall Current visit: Yes Status: Acute Category: Medical Code(s): W19.XXXA - Unspecified fall, initial encounter
[2017-03-26 09:58] LABS: Basophils % 0.1 % (0.1-2.0); Eosinophils % 0.2 % (0.1-12.0); Hematocrit 40.4 % (37.0-47.0); Hemoglobin 13.5 g/dL (12.2-16.2); Lymphocytes # 0.8 K/mm3 (0.7-4.5); Lymphocytes % 9.3 K/mm3 (10-50); Mean Corpuscular HGB Conc 33.3 g/dL (31.8-35.4); Mean Corpuscular Hemoglobin 31.3 pg (27.0-31.2); Mean Corpuscular Volume 93.8 fl (81-99); Mean Platelet Volume 9.3 fl (7.4-10.4); Monocytes # 0.5 K/mm3 (0.1-1.0); Monocytes % 5.9 % (1.7-9.3); Neutrophils # 7.7 K/mm3 (1.8-7.8); Neutrophils % 84.5 % (37.0-80.0); Platelet Count 97 K/mm3 (142-424); Red Cell Distribution Width 13.1 % (11.5-17.5)
[2017-03-26 10:10] LABS: Blood Urea Nitrogen 68 mg/dL (7-18); Carbon Dioxide 28 mmol/L (21.0-32.0); Chloride 102 mmol/L (98-107); Creatinine Clearance Estimated 86 mL/min (0-300); Creatinine,Serum 1.14 mg/dL (0.55-1.02); Estimated Glomerular Filt Rate 49 ml/min (>60); GFR (African American) 60 ML/MIN (>60); Glucose 135 mg/dL (74-106); Sodium 136 mmol/L (136-145); Troponin I < 0.02 ng/ml (0.00-0.06)
--- NOTE | 2017-03-26 11:15 | SW/DCPLANNER ---
I have spoke with Pedro from [facility] this morning to let her know this patient will need a repeat chest x-ray today due to being hypoxic. Patient could be ready for discharge tomorrow 03/27/17.
--- NOTE | 2017-03-26 15:44 | PC.NURSE ---
REPORT FROM Mervat SHEEHAN RN THIS AM CHARLY BRAVO, MSN, RN
--- NOTE | 2017-03-26 15:45 | HMH.CARDCON2 ---
History of Present Illness Consult date: 03/26/17 Requesting physician: Jenaro Joseph Consult reason: chest pain Chief complaint: chest pain, cardiomegaly on CXR History of present illness: 56-year-old white female with history of schizophrenia was admitted through the emergency department after history of fall and change in level of consciousness along with reportedly not acting herself. Reportedly has had some respiratory distress that has improved with nebulizer treatment. Patient relates chest pain at times with walking just a few feet. At other times she states she feels fine and has no problems. She states I just want to go home and I have done nothing wrong . Chest x-rays this admission have shown no evidence of heart failure but did show cardiomegaly. Patient did have an echocardiogram today with preliminary report showing preserved ejection fraction with some left sided chamber enlargement and questionable mitral regurgitation of moderate degree. Patient's troponins this admission have been normal. She denies tobacco use, diabetes or hypertension. Cardiology consulted for evaluation and recommendations. Review of Systems - Review of Systems Review of systems:: pertinent systems reviewed and negative unless documented below - *Cardiovascular Reports chest pain with activity - *Respiratory Reports shortness of breath - *Neurologic Reports weakness, Denies headache(s), Denies tingling/numbness/burning sensations [facility] History Other Surgeries: Yes: Other (nurses documentation not complete) - *Social History Smoking Status: Current every day smoker Tobacco Type: cigarettes Alcohol Intake: never Occupational Status: disabled - Psychiatric History Expresses thoughts of harming self/others: None Suicide Plan Description: No Plan *Family Hx:: Unable to obtain Meds Home Medications Medication Instructions Recorded Confirmed Type PARoxetine HCl [Paroxetine HCl] 30 mg PO DAILY 03/24/17 03/24/17 History Tizanidine HCl [Zanaflex 4mg 4 mg PO DAILY 03/24/17 03/24/17 History tablet] buPROPion HCl [Bupropion Xl] 300 mg PO DAILY 03/24/17 03/24/17 History hydrOXYzine HCl [Hydroxyzine HCl] 25 mg PO Q4HP PRN 03/24/17 03/24/17 History risperiDONE [Risperidone] 3 mg PO HS 03/24/17 03/24/17 History Allergies Allergy/AdvReac Type Severity Reaction Status Date / Time No Known Allergies Allergy Verified 03/24/17 15:00 Exam Vital signs and Labs for Last 24 Hours: Temp Pulse Resp BP Pulse Ox 98.5 F 85 22 104/65 89 L 03/26/17 08:00 03/26/17 13:55 03/26/17 08:00 03/26/17 08:00 03/26/17 09:33 Laboratory Results - last 24 hr 03/26/17 09:47: WBC 9.0, RBC 4.30, Hgb 13.5, Hct 40.4, MCV 93.8, MCH 31.3 H, MCHC 33.3, RDW 13.1, Plt Count 97 L, MPV 9.3, Neut % (Auto) 84.5 H, Lymph % (Auto) 9.3 L, [place] % (Auto) 5.9, Eos % (Auto) 0.2, Baso % (Auto) 0.1, Neut # (Auto) 7.7, Lymph # (Auto) 0.8, [place] # (Auto) 0.5, Eos # (Auto) 0.0, Baso # (Auto) 0.0 03/26/17 09:47: Sodium 136, Potassium 4.0, Chloride 102, Carbon Dioxide 28, Anion Gap 10.0, BUN 68 H D, Creatinine 1.14 H, Estimated Creat Clear 86, Estimated GFR 49 L, Est GFR ( Amer) 60, Glucose 135 H, Troponin I < 0.02 I & O for Last 24 hours: Intake & Output 03/24/17 03/25/17 03/26/17 03/27/17 11:59 11:59 11:59 11:59 Intake Total 390 / 390 60 / 60 480 / 480 Output Total 500 / 500 Balance 390 / 390 60 / 60 -20 / -20 Weight 215 lb 9 oz - *Routine Neck Exam Absent: JVD, carotid bruit - *Routine Respiratory Exam Comments: Coarse breath sounds bilaterally without rales, wheezing or rhonchi. - *Routine Cardiovascular Exam Present: RRR. Absent: gallop, rubs - *Routine Abdominal Exam Present: soft. Absent: tenderness - *Routine Extremities Exam Absent: edema - *Routine Neurological Exam Present: moving all extremities Results 03/26/17 09:47 03/26/17 09:47 Cardiac Enzymes 03/26/17 Range/Units
--- NOTE | 2017-03-26 15:50 | P.CONS_ITS ---
History of Present Illness Consult date: 03/26/17 Requesting physician: Jenaro Joseph Consult reason: chest pain Chief complaint: chest pain, cardiomegaly on CXR History of present illness: 56-year-old white female with history of schizophrenia was admitted through the emergency department after history of fall and change in level of consciousness along with reportedly not acting herself. Reportedly has had some respiratory distress that has improved with nebulizer treatment. Patient relates chest pain at times with walking just a few feet. At other times she states she feels fine and has no problems. She states I just want to go home and I have done nothing wrong . Chest x-rays this admission have shown no evidence of heart failure but did show cardiomegaly. Patient did have an echocardiogram today with preliminary report showing preserved ejection fraction with some left sided chamber enlargement and questionable mitral regurgitation of moderate degree. Patient's troponins this admission have been normal. She denies tobacco use, diabetes or hypertension. Cardiology consulted for evaluation and recommendations. Review of Systems - Review of Systems Review of systems:: pertinent systems reviewed and negative unless documented below - *Cardiovascular Reports chest pain with activity - *Respiratory Reports shortness of breath - *Neurologic Reports weakness, Denies headache(s), Denies tingling/numbness/burning sensations [facility] History Other Surgeries: Yes: Other (nurses documentation not complete) - *Social History Smoking Status: Current every day smoker Tobacco Type: cigarettes Alcohol Intake: never Occupational Status: disabled - Psychiatric History Expresses thoughts of harming self/others: None Suicide Plan Description: No Plan *Family Hx:: Unable to obtain Meds Home Medications Medication Instructions Recorded Confirmed Type PARoxetine HCl [Paroxetine HCl] 30 mg PO DAILY 03/24/17 03/24/17 History Tizanidine HCl [Zanaflex 4mg 4 mg PO DAILY 03/24/17 03/24/17 History tablet] buPROPion HCl [Bupropion Xl] 300 mg PO DAILY 03/24/17 03/24/17 History hydrOXYzine HCl [Hydroxyzine HCl] 25 mg PO Q4HP PRN 03/24/17 03/24/17 History risperiDONE [Risperidone] 3 mg PO HS 03/24/17 03/24/17 History Allergies Allergy/AdvReac Type Severity Reaction Status Date / Time No Known Allergies Allergy Verified 03/24/17 15:00 Exam Vital signs and Labs for Last 24 Hours: Temp Pulse Resp BP Pulse Ox 98.5 F 85 22 104/65 89 L 03/26/17 08:00 03/26/17 13:55 03/26/17 08:00 03/26/17 08:00 03/26/17 09:33 Laboratory Results - last 24 hr 03/26/17 09:47: WBC 9.0, RBC 4.30, Hgb 13.5, Hct 40.4, MCV 93.8, MCH 31.3 H, MCHC 33.3, RDW 13.1, Plt Count 97 L, MPV 9.3, Neut % (Auto) 84.5 H, Lymph % ( Auto) 9.3 L, [place] % (Auto) 5.9, Eos % (Auto) 0.2, Baso % (Auto) 0.1, Neut # ( Auto) 7.7, Lymph # (Auto) 0.8, [place] # (Auto) 0.5, Eos # (Auto) 0.0, Baso # (Auto ) 0.0 03/26/17 09:47: Sodium 136, Potassium 4.0, Chloride 102, Carbon Dioxide 28, Anion Gap 10.0, BUN 68 H D, Creatinine 1.14 H, Estimated Creat Clear 86, Estimated GFR 49 L, Est GFR ( Amer) 60, Glucose 135 H, Troponin I < 0.02 I & O for Last 24 hours: Intake & Output 03/24/17 03/25/17 03/26/17 03/27/17 11:59 11:59 11:59 11:59 Intake Total 390 / 390 60 / 60 480 / 480 Output Total 500 / 500 Balance 390 / 390 60
--- NOTE | 2017-03-26 18:32 | PC.NURSE ---
THIS IS A 56 YEAR OLD WHITE FEMALE THAT PRESENTED TO THE HOSPITAL ON 03/24/17 WITH A DIAGNOSIS OF BRONCITIS AND UTI, SHE HAS A HISTORY OF SCHIZOPRENIA. SHE IS A FALL RISK AND HAS FALLEN ONE TIME SINCE ADMISSION. SHE HAS BEEN UP IN THE CHAIR TODAY AND SAFETY WAS APPLIED. SHE IS BACK IN BED AT THIS TIME WITH THE BED ALARM ON. SHE HAS BEEN MORE ALERT THIS AFTERNOON AND HAS EATEN 75% OF HER BREAKFAST AND LUNCH. SHE SLEPT THROUGH SUPPER. ECHO COMPLETED TODAY WITH FINAL IMPRESSION OF MITRAL VALVE REGURITATION MILD TO MODERATE AND CHEST XRAY SHOWS MILD CARDIOMEGLY WITH MILD LEFT BASILAR ATELECTASIS. SHE HAS HER ELENI HOSE ON WITH GRIPPER SOCKS. SHE CONTINUES ON IV ANTIBIOTICS AND BREATHING TREATMENTS AT THIS TIME. SHE WAS GIVEN LASIX 40MG IV THIS AM PER ORDER AND HER OUTPUT INCREASED THROUGHOUT THE DAY. WILL CONTINUE TO MONITOR. CHARLY BRAVO, MSN, RN
--- NOTE | 2017-03-26 19:07 | PC.NURSE ---
HANDOFF GIVEN TO Mervat SHEEHAN RN BY CHARLY BRAVO, MSN RN
[2017-03-27] VITALS (9 sets, daily range): BP systolic 116–175; BP diastolic 65–94; PULSE 78–100; RESP 20–22; TEMP 36.4–36.9; O2SAT 88–95
--- NOTE | 2017-03-27 05:38 | PC.NURSE ---
PT HAS SLEPT MOST OF NIGHT. PT CONTINUES ON 2L PER NC. OCCASIONAL COUGH NOTED. PT INCONTINENT OF URINE TWICE THIS SHIFT. PT WITH UNSTABLE GAIT. AT LEAST ONE ASSIST REQUIRED WHEN OOB. BED ALARM HAS REMAINED ON DUE TO PT NOT CALLING OUT USING CALLBELL. PT HAS BEEN REMINDED MUTLIPLE TIMES TO USE CALL JOE AND TO NOT GET OOB UNLESS ASSISTED.
[2017-03-27 06:49] LABS: Anion Gap 11.7 mEq/L (5-15); Blood Urea Nitrogen 51 mg/dL (7-18); Carbon Dioxide 27 mmol/L (21.0-32.0); Chloride 104 mmol/L (98-107); Creatinine Clearance Estimated 111 mL/min (0-300); Creatinine,Serum 0.88 mg/dL (0.55-1.02); Estimated Glomerular Filt Rate 67 ml/min (>60); GFR (African American) 81 ML/MIN (>60); Glucose 125 mg/dL (74-106); Potassium 3.7 mmoL/L (3.5-5.1); Sodium 139 mmol/L (136-145)
--- NOTE | 2017-03-27 08:33 | HMH.DCSUM ---
General - General Admission date: 03/24/17 <CourtneyHiengabrielle - 03/27/17 08:41> Discharge date: 03/28/17 <Jenaro Joseph - 03/28/17 13:20> 03/27/17 <Hien Valdezgabrielle - 03/27/17 08:41> HPI HPI: this wf was sent from skilled nursing with sob and dec loc and no chest pain -pt with reported fall - pt was seen in ed and admitted <michiHiengabrielle - 03/27/17 08:41> Objective Vital signs: Temp Pulse Resp BP Pulse Ox 97.5 F L 72 18 142/94 91 L 03/28/17 08:00 03/28/17 10:39 03/28/17 08:00 03/28/17 08:00 03/28/17 10:39 <Jenaro Joseph - 03/28/17 13:20> Temp Pulse Resp BP Pulse Ox 98.5 F 100 H 20 143/85 95 03/27/17 07:25 03/27/17 07:25 03/27/17 07:25 03/27/17 07:25 03/27/17 07:25 <Hien Valdezgabrielle - 03/27/17 08:41> no acute distress <michiHiengabrielle - 03/27/17 08:41> - *Routine HEENT Exam Head: Present: normocephalic <michiHiengabrielle - 03/27/17 08:41> Eye: Present: PERRL <CourtneyHiengabrielle - 03/27/17 08:41> ENT: Present: mucous membranes moist <michiHiengabrielle - 03/27/17 08:41> - *Routine Neck Exam Present: supple, full ROM <michiHiengabrielle - 03/27/17 08:41> - *Routine Respiratory Exam Present: CTA bilaterally <CourtneyHiengabrielle - 03/27/17 08:41> - *Routine Cardiovascular Exam Present: RRR <CourtneyHiengabrielle - 03/27/17 08:41> - *Routine Abdominal Exam Present: soft, normoactive bowel sounds <Chandni Valdez - 03/27/17 08:41> - *Routine Rectal Exam Patient deferred: digital exam <Chandni Valdez - 03/27/17 08:41> Hospital Course Hospital Course: per cardiology: Cardiology was consulted for dyspnea which may be exacerbated by mitral regurgitation noted on echocardiogram of mild to moderate degree. Will begin low-dose diuretic therapy in order not to dehydrate the patient and cause recurrent falls. Will defer any further cardiac medications until after the final result of her echocardiogram are back. Would not pursue ischemic cardiac workup at this time since patient's ejection fraction on echocardiogram is preserved with no wall motion abnormality and there is no evidence of acute coronary syndrome by troponins.With rising BUN and decrease in hemoglobin but improving creatinine would be concerned for possible GI bleed although the patient has not had any diarrhea. Rectal exam preform wait for occult blood. will work up as out pt for colonscopy. repeat cbc and cmp on friday <Chandni Valdez - 03/27/17 08:53> Results Labs on day of discharge: Labs from last 24 hours 03/28/17 06:43 Sodium 140 Potassium 3.8 Chloride 103 Carbon Dioxide 28 Anion Gap 12.8 BUN 32 H D Creatinine 0.76 Estimated Creat Clear 129 Estimated GFR 79 Est GFR ( Amer) 96 Glucose 117 H <Jenaro Joseph Yvon - 03/28/17 13:20> Labs from last 24 hours 03/27/17 03/26/17 03/26/17 06:20 09:47 09:47 WBC 9.0 RBC 4.30 Hgb 13.5 Hct 40.4 MCV 93.8 MCH 31.3 H MCHC 33.3 RDW 13.1 Plt Count 97 L MPV 9.3 Neut % (Auto) 84.5 H Lymph % (Auto) 9.3 L [place] % (Auto) 5.9 Eos % (Auto) 0.2 Baso % (Auto) 0.1 Neut # (Auto) 7.7 Lymph # (Auto) 0.8 [place] # (Auto) 0.5 Eos # (Auto) 0.0 Baso # (Auto) 0.0 Sodium 139 136 Potassium 3.7 4.0 Chloride 104 102 Carbon Dioxide 27 28 Anion Gap 11.7 10.0 BUN 51 H 68 H D Creatinine 0.88 D 1.14 H Estimated Creat Clear 111 86 Estimated GFR 67 49 L Est GFR ( Amer) 81 D 60 Glucose 125 H 135 H Troponin I < 0.02 <Chandni Valdez - 03/27/17 08:41> DS: Diagnosis - Discharge Diagnosis (1) Reactive airway disease with acute exacerbation Status: Acute (2) UTI (urinary tract infection) Status: Acute (3) Renal insufficiency Status: Acute (4) Fall Status: Acute <Jenaro Joseph - 03/28/17 13:20> Meds Home Medications Medication Instructions Recorded Confirmed T
--- NOTE | 2017-03-27 08:39 | P.DS_ITS ---
General - General Admission date: 03/24/17 <CourtneyHiengabrielle - 03/27/17 08:41> Discharge date: 03/28/17 <Jenaro Joseph - 03/28/17 13:20> 03/27/17 <Hien Valdezgabrielle - 03/27/17 08:41> HPI HPI: this wf was sent from [facility] with sob and dec loc and no chest pain -pt with reported fall - pt was seen in ed and admitted <michiHiengabrielle - 03/27/17 08:41> Objective Vital signs: Temp Pulse Resp BP Pulse Ox 97.5 F L 72 18 142/94 91 L 03/28/17 08:00 03/28/17 10:39 03/28/17 08:00 03/28/17 08:00 03/28/17 10:39 <Jenaro Joseph - 03/28/17 13:20> Temp Pulse Resp BP Pulse Ox 98.5 F 100 H 20 143/85 95 03/27/17 07:25 03/27/17 07:25 03/27/17 07:25 03/27/17 07:25 03/27/17 07:25 <Hien Valdezgabrielle - 03/27/17 08:41> no acute distress <michiHiengabrielle - 03/27/17 08:41> - *Routine HEENT Exam Head: Present: normocephalic <michiHiengabrielle - 03/27/17 08:41> Eye: Present: PERRL <CourtneyHiengabrielle - 03/27/17 08:41> ENT: Present: mucous membranes moist <michiHiengabrielle - 03/27/17 08:41> - *Routine Neck Exam Present: supple, full ROM <michiHiengabrielle - 03/27/17 08:41> - *Routine Respiratory Exam Present: CTA bilaterally <CourtneyHiengabrielle - 03/27/17 08:41> - *Routine Cardiovascular Exam Present: RRR <CourtneyHiengabrielle - 03/27/17 08:41> - *Routine Abdominal Exam Present: soft, normoactive bowel sounds <Chandni Valdez - 03/27/17 08:41> - *Routine Rectal Exam Patient deferred: digital exam <Chandni Valdez - 03/27/17 08:41> Hospital Course Hospital Course: per cardiology: Cardiology was consulted for dyspnea which may be exacerbated by mitral regurgitation noted on echocardiogram of mild to moderate degree. Will begin low-dose diuretic therapy in order not to dehydrate the patient and cause recurrent falls. Will defer any further cardiac medications until after the final result of her echocardiogram are back. Would not pursue ischemic cardiac workup at this time since patient's ejection fraction on echocardiogram is preserved with no wall motion abnormality and there is no evidence of acute coronary syndrome by troponins.With rising BUN and decrease in hemoglobin but improving creatinine would be concerned for possible GI bleed although the patient has not had any diarrhea. Rectal exam preform wait for occult blood. will work up as out pt for colonscopy. repeat cbc and cmp on friday <Chandni Valdez - 03/27/17 08:53> Results Labs on day of discharge: Labs from last 24 hours 03/28/17 06:43 Sodium 140 Potassium 3.8 Chloride 103 Carbon Dioxide 28 Anion Gap 12.8 BUN 32 H D Creatinine 0.76 Estimated Creat Clear 129 Estimated GFR 79 Est GFR ( Amer) 96 Glucose 117 H <Jenaro Joseph S - 03/28/17 13:20> Labs from last 24 hours 03/27/17 03/26/17 03/26/17 06:20 09:47 09:47 WBC 9.0 RBC 4.30 Hgb 13.5 Hct 40.4 MCV 93.8 MCH 31.3 H MCHC 33.3 RDW 13.1 Plt Count 97 L MPV 9.3 Neut % (Auto) 84.5 H Lymph % (Auto) 9.3 L [place] % (Auto) 5.9 Eos % (Auto) 0.2 Baso % (Auto) 0.1 Neut # (Auto) 7.7 Lymph # (Auto) 0.8
[2017-03-27 10:28] LABS: Occult Blood,Stool Negative (Negative)
--- NOTE | 2017-03-27 12:30 | PC.NURSE ---
CARE MANAGEMENT ALONG WITH TASNEEM RODRIGUEZ PERSONNEL HAS BEEN IN ROOM SPEAKING TO THE PATIENT DISCUSSING WHETER OR NOT SHE IS STABLE ENOUGH TO GO BACK TO HER HOME. THE CONCERN VOICED IS THAT THE PATIENT HAS A ROOM ON THE SECOND FLOOR AND IS NOT ABLE TO AMBULATE TO HER ROOM INDEPENTLY THEY WILL BE LOOKING INTO TO FINDING HER PLACEMENT ELSEWHERE.
--- NOTE | 2017-03-27 16:13 | SW/DCPLANNER ---
Addendum entered by Elin Knapp 03/27/17 16:20: [facility] also made contact with [facility] and they only have short term beds available and also made contact with [facility] and they have no beds available at this time. Original Note: Patient was ready for discharge this AM. [facility] sent a worker up here to evaluate this patient...worker has stated that patient would not safe to return at this time due to living on the second floor at [facility]. Patient is aware of situation and agrees to go to halfway until able to transport herself upstairs to her room. [facility] has agreed to hold patients room for her. At this time [facility] has refused to accept this patient due to not being able to meet patients needs. [facility], [facility], and [facility] is reviewing this patients information. I will continue to follow up with these facilities until placement is found for this patient.
[2017-03-28] VITALS: BP 169/90; PULSE 84; RESP 20; TEMP 36.3; O2SAT 96
[2017-03-28 02:13] VITALS: PULSE 100; PULSE 95
[2017-03-28 04:00] VITALS: BP 143/83; PULSE 99; RESP 20; TEMP 36.8; O2SAT 94
--- NOTE | 2017-03-28 06:17 | PC.NURSE ---
NO COMPLAINTS STATED. PT A&OX2, PLEASANTLY CONFUSED. PT WOULD MAKE STATEMENTS WHEN IS SUPPER COMING? MULTIPLE TIMES T/O SHIFT. MENTAL STATUS LIMITS COMPLIANCE WITH SAFETY PREVENTION. SAFETY DEVICE WAS APPLIED THIS SHIFT. SCATTERED RHONCHI NOTED ON AUSCULTATION OF LUNG SOUNDS. TOLERATED RA WELL. SCATTERED BRUISING/ SORES NOTED ON BLE AND ABDOMEN. VSS. WILL CONTINUE TO MONITOR.
--- NOTE | 2017-03-28 06:23 | PC.NURSE ---
treatment held at 6am per rn request
[2017-03-28 07:06] LABS: Anion Gap 12.8 mEq/L (5-15); Blood Urea Nitrogen 32 mg/dL (7-18); Carbon Dioxide 28 mmol/L (21.0-32.0); Chloride 103 mmol/L (98-107); Creatinine Clearance Estimated 129 mL/min (0-300); Creatinine,Serum 0.76 mg/dL (0.55-1.02); Estimated Glomerular Filt Rate 79 ml/min (>60); GFR (African American) 96 ML/MIN (>60); Glucose 117 mg/dL (74-106); Potassium 3.8 mmoL/L (3.5-5.1); Sodium 140 mmol/L (136-145)
[2017-03-28 08:00] VITALS: BP 142/94; PULSE 102; RESP 18; TEMP 36.4; O2SAT 94; O2SAT 96
[2017-03-28 10:39] VITALS: PULSE 68; PULSE 72; O2SAT 91
--- NOTE | 2017-03-28 12:07 | PC.NURSE ---
PT WILL NEED A WALKER RATHER THAN A CANE FOR UNSTEADY GAIT AND MOBILITY
--- NOTE | 2017-03-28 12:50 | HMH.ACPN2 ---
Internal Medicine - PN: Subj *Date: 03/28/17 *Time: 12:50 Interval history: pt doing better at this time - no new issues Exam Vital signs and Labs for Last 24 Hours: Temp Pulse Resp BP Pulse Ox 97.5 F L 72 18 142/94 91 L 03/28/17 08:00 03/28/17 10:39 03/28/17 08:00 03/28/17 08:00 03/28/17 10:39 Laboratory Results - last 24 hr 03/28/17 06:43: Sodium 140, Potassium 3.8, Chloride 103, Carbon Dioxide 28, Anion Gap 12.8, BUN 32 H D, Creatinine 0.76, Estimated Creat Clear 129, Estimated GFR 79, Est GFR ( Amer) 96, Glucose 117 H I & O for Last 24 hours: Intake & Output 03/26/17 03/27/17 03/28/17 03/29/17 11:59 11:59 11:59 11:59 Intake Total 60 / 60 1440 / 1440 620 / 620 Output Total 500 / 500 Balance 60 / 60 940 / 940 620 / 620 - Constitutional no acute distress - *Routine HEENT Exam Head: Present: normocephalic Eye: Present: EOMI, PERRL ENT: Present: mucous membranes dry - *Routine Neck Exam Present: full ROM. Absent: JVD - *Routine Respiratory Exam Absent: respiratory distress - *Routine Cardiovascular Exam Present: RRR. Absent: gallop - *Routine Abdominal Exam Present: soft - *Routine Extremities Exam Absent: calf tenderness - Routine Back/Spine/Pelvis Exam Back/Spine: Present: full ROM - *Routine Skin Exam Present: intact. Absent: rash - *Routine Neurological Exam Present: alert, oriented X3, CN II-XII intact - Routine Psychiatric Exam Present: depressed. Absent: good insight Assessment and Plan (1) Reactive airway disease with acute exacerbation Current visit: Yes Status: Acute Qualifiers: Asthma severity: mild Asthma persistence: persistent Qualified Code(s): J45.31 - Mild persistent asthma with (acute) exacerbation Category: Medical Code(s): J45.901 - Unspecified asthma with (acute) exacerbation (2) UTI (urinary tract infection) Current visit: Yes Status: Acute Qualifiers: Urinary tract infection type: acute cystitis Hematuria presence: without hematuria Qualified Code(s): N30.00 - Acute cystitis without hematuria Category: Medical Code(s): N39.0 - Urinary tract infection, site not specified (3) Renal insufficiency Current visit: Yes Status: Acute Category: Medical Code(s): N28.9 - Disorder of kidney and ureter, unspecified (4) Fall Current visit: Yes Status: Acute Category: Medical Code(s): W19.XXXA - Unspecified fall, initial encounter
--- NOTE | 2017-03-28 13:07 | SW/DCPLANNER ---
Addendum entered by Elin Knapp 03/28/17 14:45: [facility] has been contacted for this patient. Patient will discharge back to [facility] this afternoon. Original Note: After various conversations with nursing homes all around [place]...[facility] was willing to accept this patient this afternoon. However, Pedro from [facility] has contacted me stating they now have a bed available on first floor for this patient and would be willing to come and re-evaluate this patient. Visited with patient during Ej re-evaluation...patient was stable on her feet with a rolling walker and O2 sat remained stable. Pedro has stated that they will accept this patient back to their facility this afternoon. I have also ordered a rolling walker for this patient from [facility]. [facility] will deliver rolling walker to patients room. I will contacted transportation for patient once ready for discharge.
== END 2017-03-28 15:17 | disposition home or self-care (01) | DRG 202 ==
LOC: ER 18:13 → 2ND 03-25 07:38
PROVIDERS: Physician Assistant; Admitting Provider Internal Medicine Adolescent Medicine; Emergency Provider Emergency Medicine; PCP Emergency Medicine; Visit Provider Emergency Medicine
DX: J45.31 Mild persistent asthma with (acute) exacerbation (principal); N30.00 Acute cystitis without hematuria; F20.9 Schizophrenia, unspecified; J20.9 Acute bronchitis, unspecified; N28.9 Disorder of kidney and ureter, unspecified; F17.210 Nicotine dependence, cigarettes, uncomplicated; W19.XXXA Unspecified fall, initial encounter; I51.7 Cardiomegaly; R07.9 Chest pain, unspecified; I34.0 Nonrheumatic mitral (valve) insufficiency; Y93.9 Activity, unspecified; Y92.199 Unspecified place in other specified residential institution as the place of occurrence of the external cause; Z79.899 Other long term (current) drug therapy
CPT/HCPCS: 36415; 70450; 71045; 71046; 74176; 80048; 80053; 80305; 81001; 82140; 82150; 82272; 82962; 83690; 84484; 85007; 85025; 87086; 93306; 94640; 94761; 96372; 96374; 96375; 97162; 99284; G0328

== ENCOUNTER → 2017-04-17 07:05 | Outpatient (CLI) | payer MEDICAID, SELFPAY ==
--- NOTE | 2017-04-17 07:08 | NM_ITS ---
History and Indications: shortness of breath, family history. Procedure: Patient received a 0.4 mg of Lexiscan, resting heart rate was 78 bpm, resting blood pressure 157/76, with Lexiscan maximum heart rate achieved was 109 bpm which is less than 85% of the maximum predicted heart rate and a blood pressure was 132/73. With Lexiscan shortness of breath and stomach discomfort. Electrocardiogram: Resting electrocardiogram showed sinus rhythm, with Lexiscan there is less than 1.[address] segment depression noted from the baseline EKG. The EKG portion of the Lexiscan Myoview is nondiagnostic. Cardiac stress and resting SPECT images: Cardiac stress and rest SPECT images were obtained using technetium 99 Myoview 10.6 mCi at rest and 30.8 mCi at stress, gated SPECT further analysis of segmental wall and calculation of the ejection fraction also done. Cardiac stress and rest SPECT images show uniform myocardial activity without any segmental perfusion abnormality, computer derived ejection fraction is over 61% with no obvious regional wall motion abnormality, right ventricle is normal size and contractility. Conclusion: 1. The EKG portion of the exercise Myoview is nondiagnostic. 2. No obvious scintigraphic evidence of reversible ischemia seen, computer derived ejection fraction is 61%with no obvious regional wall motion abnormality, right ventricle is normal size and contractility.
--- NOTE | 2017-04-17 11:09 | HMH.ITSHM ---
risperidone paroxetine buprpion robafen promethazine
== END ==
PROVIDERS: PCP Emergency Medicine; Visit Provider Internal Medicine Cardiovascular Disease
DX: R06.00 Dyspnea, unspecified (principal); I51.7 Cardiomegaly; I34.0 Nonrheumatic mitral (valve) insufficiency; N28.9 Disorder of kidney and ureter, unspecified; R00.0 Tachycardia, unspecified; Z72.0 Tobacco use
CPT/HCPCS: 78452; 93017; A9502; J2785

== ENCOUNTER → 2018-04-21 16:37 | Outpatient (CLI) | payer MEDICAID, SELFPAY | PROVIDERS: Visit Provider Urology | DX: R39.89 Other symptoms and signs involving the genitourinary system (principal) | CPT/HCPCS: 87086; 87088; 87186 ==

== ENCOUNTER 2019-09-24 20:07 | Observation (INO) | payer MEDICAID, SELFPAY ==
[2019-09-24] VITALS (8 sets, daily range): BP systolic 159–182; BP diastolic 78–100; PULSE 64–75; RESP 16–18; TEMP 37.2; O2SAT 95–97; BMI 42.9
--- NOTE | 2019-09-24 20:20 | ECG_ITS ---
APPROVED REPORT Exam: Resting ECG HR:76 bpm ECG Measurements Heart Rate 76 AXES [place] 144 P 40 QRSd 84 QRS 55 QT 388 T 48 QTc 436 <Conclusion> Normal sinus rhythm Normal ECG Electronically signed by : Sidney Montiel, 09/25/2019 16:52:14
--- NOTE | 2019-09-24 21:02 | XR_ITS ---
PROCEDURE: XR CHEST 2V CLINICAL INDICATION: chest pain Chest pain, positive for covid 19 COMPARISON: CXR2 XR chest AP from 03/24/2017 CXR2V XR chest 2V from 03/26/2017 CT CHEST WO CON from 09/24/2019 FINDINGS: Unremarkable cardiovascular structures. No lobar consolidation or collapse. A 13 mm nodular opacity is noted in the right upper lobe.. This represents a partially calcified granuloma. The remaining lungs are clear IMPRESSION: No acute findings. Dictated by: Zak Peterson MD 09/25/2019 09:53 Electronically signed by Zak Peterson MD in [place] 09/25/2019 09:53
[2019-09-24 21:10] LABS: Basophils % 0.2 % (0.1-2.0); Eosinophils # 0.1 K/mm3 (0.0-0.4); Eosinophils % 1.3 % (0.1-12.0); Hematocrit 43.9 % (37.0-47.0); Hemoglobin 15.3 g/dL (12.2-16.2); Lymphocytes # 1.4 K/mm3 (0.7-4.5); Lymphocytes % 35.6 % (10-50); Mean Corpuscular HGB Conc 34.7 g/dL (31.8-35.4); Mean Corpuscular Hemoglobin 33.2 pg (27.0-31.2); Mean Corpuscular Volume 95.6 fl (81-99); Mean Platelet Volume 8.2 fl (7.4-10.4); Monocytes # 0.3 K/mm3 (0.1-1.0); Monocytes % 7.6 % (1.7-9.3); Neutrophils # 2.2 K/mm3 (1.8-7.8); Neutrophils % 55.3 % (37.0-80.0); Platelet Count 101 K/mm3 (142-424); Red Cell Distribution Width 13.2 % (11.5-17.5); White Blood Count 3.9 K/mm3 (4.8-10.8)
[2019-09-24 21:13] LABS: Alanine Aminotransferase 57 U/L (12-78); Albumin Level 3.9 g/dl (3.5-5.0); Albumin/Globulin Ratio 1.1 (1.1-1.8); Alkaline Phosphatase 162 U/L (38-126); Anion Gap 9.8 mEq/L (5-15); Aspartate Amino Transferase 60 U/L (14-36); Bilirubin,Total 0.6 mg/dl (0.2-1.3); Blood Urea Nitrogen 10 mg/dl (7-17); Carbon Dioxide 29 mmol/L (22.0-30.0); Chloride 105 mmol/L (98-107); Creatinine Clearance Estimated 76 mL/min (50-200); Estimated Glomerular Filt Rate 86 ml/min (>60); GFR (African American) 104 ML/MIN (>60); Globulin 3.4 g/dL (1.3-3.2); Glucose 94 mg/dl (74-100); Potassium 3.8 mmoL/L (3.5-5.1); Sodium 140 mmol/L (136-145); Total Protein,Serum 7.3 g/dl (6.3-8.2)
--- NOTE | 2019-09-24 21:16 | HMH.EDCP ---
ED Disposition Clinical Impression: COVID-19 virus IgM antibody detected, Thrombocytopenia, Tobacco abuse, Pulmonary nodule, LVH (left ventricular hypertrophy) Chest pain Qualifiers: Chest pain type: precordial pain Qualified Code(s): R07.2 - Precordial pain Schizophrenia Qualifiers: Schizophrenia type: unspecified Qualified Code(s): F20.9 - Schizophrenia, unspecified Mitral valve regurgitation Qualifiers: Cardiac valve disease etiology: etiology unspecified Qualified Code(s): I34.0 - Nonrheumatic mitral (valve) insufficiency Obesity Qualifiers: Obesity type: due to excess calories Obesity classification: adult class 3 (BMI >= 40) Serious obesity comorbidity presence: with serious comorbidity Body mass index: BMI 40.0-44.9 Qualified Code(s): E66.01 - Morbid (severe) obesity due to excess calories; Z68.41 - Body mass index (BMI) 40.0-44.9, adult Tricuspid regurgitation Qualifiers: Cardiac valve disease etiology: etiology unspecified Qualified Code(s): I07.1 - Rheumatic tricuspid insufficiency HTN (hypertension) Qualifiers: Hypertension type: essential hypertension Qualified Code(s): I10 - Essential (primary) hypertension Disposition: Admitted as Observation Condition on Discharge: Fair - Critical Care Critical Care Time: No Attestation: On 09/24/19, the high probability of a clinically significant, sudden or life threatening deterioration of the following system(s) required my full and direct attention, intervention and personal management. The time I documented below is in addition to time spent performing reported procedures but includes the following listed in this critical care notation. Medical Decision Making - Medical Records Medical records reviewed: Yes: I reviewed the patient's medical records. - Jm Inquiry Pt receiving controlled substance: No Vital Signs: 09/24/19 20:05 09/24/19 20:30 09/24/19 21:00 Temperature 98.9 F Temperature Source Oral Pulse Rate [Right Brachial] 70 75 72 Respiratory Rate 17 18 16 Blood Pressure [Right Arm] 164/81 H 164/81 H 159/78 H Blood Pressure Mean [Right Arm] 108 108 105 Blood Pressure Source [Right Arm] Automatic Cuff Automatic Cuff Automatic Cuff Blood Pressure Position [Right Arm] Sitting Supine Supine 02 Sat by Pulse Oximetry 97 95 95 Oxygen Delivery Method Room Air Room Air Room Air 09/24/19 21:30 09/24/19 22:00 09/24/19 22:30 Temperature Temperature Source Pulse Rate [Right Brachial] 68 67 66 Respiratory Rate 17 18 18 Blood Pressure [Right Arm] 179/87 H 169/83 H 171/88 H Blood Pressure Mean [Right Arm] 117 111 115 Blood Pressure Source [Right Arm] Automatic Cuff Automatic Cuff Automatic Cuff Blood Pressure Position [Right Arm] Supine Supine Supine 02 Sat by Pulse Oximetry 96 96 97 Oxygen Delivery Method Room Air Room Air Room Air 09/24/19 23:00 09/24/19 23:30 09/25/19 00:00 Temperature Temperature Source Pulse Rate [Right Brachial] 68 64 66 Respiratory Rate 18 18 18 Blood Pressure [Right Arm] 172/81 H 182/100 H 166/85 H Blood Pressure Mean [Right Arm] 111 127 112 Blood Pressure Source [Right Arm] Automatic Cuff Automatic Cuff Automatic Cuff Blood Pressure Position [Right Arm] Supine Supine Supine 02 Sat by Pulse Oximetry 96 95 93 L Oxygen Delivery Method Room Air Room Air Room Air 09/25/19 00:30 09/25/19 01:00 09/25/19 01:39 Temperature Temperature Source Pulse Rate [Right Brachial] 62 64 80 Respiratory Rate 18 13 12 Blood Pressure [Right Arm] 164/82 H 156/81 H 162/76 H Blood Pressure Mean [Right Arm] 109 106 104 Blood Pressure Source [Right Arm] Automatic Cuff Automatic Cuff Automatic Cuff Blood Pressure Position [Right Arm] Supine Sitting Sitting 02 Sat by Pulse Oximetry 94 L 98 96 Oxygen Delivery Method Room Air Room Air Room Air - Lab Data Lab results reviewed: Yes: I reviewed the patient's lab results. Lab Results 09/24/19 20:15: WBC 3.9 L, RBC 4.60, Hgb 15.3, Hct 43.9, MCV 95.6, MCH 33.2 H, M
[2019-09-24 21:26] LABS: Troponin I < 0.01 ng/ml (0.00-0.034)
[2019-09-24 21:36] LABS: Amylase 52 U/L (30-110); Lipase 56 U/L (23-300)
[2019-09-24 23:21] LABS: Coronavirus 19 IgG Antibody Negative (Negative)
[2019-09-24 23:22] LABS: Coronavirus 19 IgM Antibody Positive (Negative)
--- NOTE | 2019-09-24 23:30 | CT_ITS ---
PROCEDURE: CT CHEST WO CON CLINICAL INDICATION: cough Cough COMPARISON: ABDPELW CT abdomen pelvis wo con from 03/24/2017 TECHNIQUE: Axial images obtained with sagittal and coronal reformats. All CT scans at the facility use one or more dose reduction, viz: automated exposure control, ma/kV adjustment per patient size (including targeted exams where dose is matched to indication, i.e. head), or iterative reconstruction technique. FINDINGS: HEART AND MEDIASTINAL STRUCTURES: No mediastinal or hilar mass. There is minimal pericardial thickening and mild coronary artery calcification. There is a small hiatal hernia with mild nonspecific thickening of the distal esophagus. LUNGS AND PLEURAL SPACES: Partially calcified 10 mm nodules present in the right upper lobe with adjacent small satellite nodules measuring up to 6 mm. There are several small noncalcified nodules in the right upper lobe measuring up to 6 mm. 3 mm noncalcified nodule left upper lobe. There is trace bilateral effusions. BONY STRUCTURES: Old left 7th rib fracture UPPER ABDOMEN: There is a pattern megaly with enlarged left hepatic lobe. There is irregular surface of the liver consistent with cirrhosis. ADDITIONAL FINDINGS: No other significant abnormalities. IMPRESSION: 1. There are multiple pulmonary nodules some of which are calcified. Some are noncalcified. These may all be related to old granulomatous disease. Recommend follow-up exam in 6 months to confirm stability of the noncalcified nodules. 2. Minimal thickening of the pericardium. 3. Cirrhosis Dictated by: Zak Peterson MD 09/25/2019 10:27 Electronically signed by Zak Peterson MD in [place] 09/25/2019 10:27
[2019-09-25] VITALS (14 sets, daily range): BP systolic 138–166; BP diastolic 73–94; PULSE 62–100; RESP 12–20; TEMP 36.7–37.2; O2SAT 93–98; BMI 34.4
[2019-09-25 01:00] LABS: Microscopic, Urine URINE MICROSCOPIC (MICROSCOPIC)
[2019-09-25 01:02] LABS: Appearance,Urine CLEAR (Clear); Bilirubin,Urine Negative (Negative); Blood, Urine Negative (Negative); Color,Urine YELLOW (Yellow); Glucose,Urine (UA) Negative (Negative); Ketones,Urine Negative (Negative); Leukocyte Esterase,Urine Negative (Negative); Nitrate,Urine POSITIVE (Negative); Protein,Urine Negative (Negative); Specific Gravity, Urine 1.015 (1.005-1.030); Urobilinogen,Urine 0.2 EU/dl (0.2)
[2019-09-25 01:07] LABS: Bacteria,Urine 2+ /lpf
[2019-09-25 01:26] LABS: Troponin I < 0.01 ng/ml (0.00-0.034)
[2019-09-25 03:55] LABS: Basophils % 0.5 % (0.1-2.0); Eosinophils % 0.6 % (0.1-12.0); Hematocrit 44.5 % (37.0-47.0); Hemoglobin 15.5 g/dL (12.2-16.2); Lymphocytes # 0.8 K/mm3 (0.7-4.5); Lymphocytes % 22.1 % (10-50); Mean Corpuscular HGB Conc 34.8 g/dL (31.8-35.4); Mean Corpuscular Hemoglobin 33.1 pg (27.0-31.2); Mean Corpuscular Volume 95.1 fl (81-99); Mean Platelet Volume 8.2 fl (7.4-10.4); Monocytes # 0.2 K/mm3 (0.1-1.0); Monocytes % 5.8 % (1.7-9.3); Neutrophils # 2.6 K/mm3 (1.8-7.8); Platelet Count 80 K/mm3 (142-424); Red Blood Count 4.68 M/mm3 (4.20-5.40); Red Cell Distribution Width 13.1 % (11.5-17.5); White Blood Count 3.6 K/mm3 (4.8-10.8)
[2019-09-25 04:02] LABS: Anion Gap 10.7 mEq/L (5-15); Blood Urea Nitrogen 7 mg/dl (7-17); Calcium 8.8 mg/dl (8.4-10.2); Carbon Dioxide 27 mmol/L (22.0-30.0); Chloride 105 mmol/L (98-107); Chol/HDL Ratio 1.9 (1-3.5); Cholesterol 168 mg/dl (140-200); Creatinine Clearance Estimated 147 mL/min (50-200); Estimated Glomerular Filt Rate 103 ml/min (>60); GFR (African American) 124 ML/MIN (>60); HDL Cholesterol 87 mg/dl (40-60); Magnesium 2.1 mg/dl (1.6-2.3); Potassium 3.7 mmoL/L (3.5-5.1); Sodium 139 mmol/L (136-145); Triglycerides 90 mg/dl (30-150); VLDL Cholesterol 18 mg/dL (0-40)
[2019-09-25 04:13] LABS: Direct LDL Cholesterol 56.91 mg/dL (100-129)
[2019-09-25 04:22] LABS: Glucose 142 mg/dl (74-100); Troponin I < 0.01 ng/ml (0.00-0.034)
--- NOTE | 2019-09-25 05:15 | PC.NURSE ---
A&O X4. PT NOTED VERY ANXIOUS AND RESTLESS. PT WAS ABLE TO REST WITH EYES CLOSED FOR ABOUT AN HOUR THIS AM AFTER ARRIVAL TO UNIT. DENIES CHEST PAIN. TOLERATED RA WELL WITH NO C/O SOA. RR EVEN AND UNLABORED. NO EDEMA NOTED. PT AMB INDEPENDENTLY IN ROOM TO AND FROM BSC. VSS. REMAINS SAFE. CONTACT & [employer] WITH EYE PROTECTION REMAIN IN PLACE. STAFF DONNING APPROPRIATE PPE T/O SHIFT. CALL LIGHT WITHIN REACH. WILL CONTINUE TO MONITOR.
--- NOTE | 2019-09-25 07:34 | PC.NURSE ---
spoke with at this time. has ordered a rapid pcr for this am stat. gave this rn orders that if pt is negative upon testing she may come out of precautions. report given to norma wilson.
[2019-09-25 07:54] LABS: Adenovirus,PCR Not Detected (NotDetected); Bordetella Pertussis Not Detected (NotDetected); Chlamydophila Pneumoniae, PCR Not Detected (NotDetected); Coronavirus 19, PCR Not Detected (NotDetected); Coronavirus 229E Not Detected (NotDetected); Coronavirus NL63 Not Detected (NotDetected); Coronavirus OC43 Not Detected (NotDetected); Coronovirus HKU1,PCR Not Detected (NotDetected); Human Metapneumovirus Not Detected (NotDetected); Influenza A, PCR Not Detected (NotDetected); Influenza AH1, 2009 Not Detected (NotDetected); Influenza AH1, PCR Not Detected (NotDetected); Influenza AH3,PCR Not Detected (NotDetected); Influenza B, PCR Not Detected (NotDetected); Mycoplasma Pneumoniae, PCR Not Detected (NotDected); Parainfluenza 1, PCR Not Detected (NotDetected); Parainfluenza 2, PCR Not Detected (NotDetected); Parainfluenza 3, PCR Not Detected (NotDetected); Parainfluenza 4, PCR Not Detected (NotDetected); Respiratory Syncytial Virus Not Detected (NotDetected); Rhinovirus/Enterovirus Not Detected (NotDetected)
--- NOTE | 2019-09-25 09:30 | PC.NURSE ---
Did make Dr. Joseph aware of pts elevated BP this am at 0925 150's, 160's over 90's. Did also make Dr. Joseph aware of severe sepsis risk- NNO given. Also, made Dr. Joseph aware that pcr was negative, as well as Dr. Montiel. He stated he didnt want to move pt to floor at this time. Pt is stable and has no c/o at this time. States she is feeling better. Denies pain or dyspnea at this time. Have made Bella Bermeo RN, manager warehouse aware of this as well. Pt is alert and oriented and able to make needs known. CB in reach. Pt eating/drinking well. Has voided 450cc thus far this shift. Dr. Montiel gave order for send out covid test to [facility]. Noted.
--- NOTE | 2019-09-25 10:16 | HMH.HP ---
*Admission Date: 09/25/19 *Chief complaint: chest pain *History of present illness: this pt from [facility] presents with progressive chest pain over the last week - no syncope or palpitations - pt was seen in the ed - Patient brought in by [facility] with reports of centralized chest pain that has been going on for a while pt with no def covid exposure and paucity of resp sx but has positive igm abx wf sent from [facility] with hx of chest pain over the last 2 weeks worse tonight - no fever or cough and no known ht dis - had echo and gxt in 2018 - no diabetes pt was admitted for eval and treatment [facility] History I have reviewed the patient's past medical history: Yes Medical History: Reports:: Anxiety, Cerebrovascular Accident, Transient Ischemic Attacks (TIA) Denies:: Cancer, Diabetes Mellitus Type 1, Diabetes Mellitus Type 2, MRSA *Have you ever received a pneumonia vaccine?: No *Have you received a flu vaccine this season?: Yes Other Surgeries: Yes: Cholecystectomy, Other Amputation: No Fractures: No - *Social History Smoking Status: Current every day smoker Tobacco Type: cigarettes # Packs/Day (cigarettes): 1 Alcohol Intake: never Alcohol Intake Frequency:: other Substance Use Type: denies use *Occupational Status:: disabled Housing: assisted living facility *Travel in the last 8 weeks: None - Psychiatric History Pschychiatric History:: Reports:: Anxiety Family Hx:: Coronary Artery Disease Review of Systems - Review of Systems Review of systems:: pertinent systems reviewed and negative unless documented below - Constitutional Denies fever(s), Denies headache(s) - Eyes Denies change in vision - ENT Denies sore throat - *Cardiovascular Reports chest pain at rest, Denies radiating jaw, neck or arm pain - *Respiratory Denies cough, Denies shortness of breath, Denies coughing up blood - *Gastrointestinal Denies abdominal pain - *Genitourinary Denies blood in urine - *Musculoskeletal Denies joint pain - Integumentary/Breasts Denies rash - *Neurologic Denies seizure-like activity, Denies localized weakness - Psychiatric Reports anxiety Meds Home Medications Medication Instructions Recorded Confirmed Type PARoxetine HCL [Paroxetine HCl] 30 mg PO DAILY 03/24/17 09/25/19 History Tizanidine HCl [Zanaflex 4mg 4 mg PO DAILY 03/24/17 09/25/19 History tablet] hydrOXYzine HCL [Hydroxyzine HCl] 25 mg PO Q4HP PRN 03/24/17 09/25/19 History risperiDONE [Risperidone] 3 mg PO HS 03/24/17 09/25/19 History acetaminophen 500 mg tablet 500 mg PO Q8HP PRN tab 04/11/17 09/25/19 History guaifenesin 100 mg/5 mL oral liquid 200 mg PO Q4H PRN 04/11/17 09/25/19 History promethazine 25 mg tablet 25 mg PO Q6H PRN 04/11/17 09/25/19 History Oxybutynin Chloride [Ditropan Xl] 10 mg PO DAILY 09/25/19 09/25/19 History bisoproloL fumarate [Zebeta 5mg 5 mg PO DAILY 09/25/19 09/25/19 History tablet] buPROPion HCL [Bupropion Xl] 300 mg PO DAILY 09/25/19 09/25/19 History Allergies Allergy/AdvReac Type Severity Reaction Status Date / Time No Known Allergies Allergy Verified 04/21/18 14:50 Exam Vital signs and Labs for Last 24 Hours: Temp Pulse Resp BP Pulse Ox 98.3 F 94 H 20 158/94 H 93 L 09/25/19 08:00 09/25/19 08:00 09/25/19 08:00 09/25/19 08:00 09/25/19 08:00 Laboratory Results - last 24 hr 09/24/19 20:15: WBC 3.9 L, RBC 4.60, Hgb 15.3, Hct 43.9, MCV 95.6, MCH 33.2 H, MCHC 34.7, RDW 13.2, Plt Count 101 L, MPV 8.2, Neut % (Auto) 55.3, Lymph % (Auto) 35.6, [place] % (Auto) 7.6, Eos % (Auto) 1.3, Baso % (Auto) 0.2, Neut # (Auto) 2.2, Lymph # (Auto) 1.4, [place] # (Auto) 0.3, Eos # (Auto) 0.1, Baso # (Auto) 0.0 09/24/19 20:15: Sodium 140, Potassium 3.8, Chloride 105, Carbon Dioxide 29, Anion Gap 9.8, BUN 10, Creatinine 0.70, Estimated Creat Clear 76, Estimated GFR 86, Est GFR ( Amer) 104, Glucose 94, Calcium 9.0, Total Bilirubin 0.6, AST 60 H, ALT 57, Alkaline Phosphatase 162 H, Trop
--- NOTE | 2019-09-25 10:19 | PC.NURSE ---
Spoke with Dr. Joseph and he stated pt could be moved to floor. Pt will be moved to room 202 a negative pressure room.
--- NOTE | 2019-09-25 13:48 | HMH.PHAVTE ---
[facility] Pharmacy VTE Monitoring - Patient Demographics Admission date: 09/25/19 Report Date: 09/25/19 Time: 13:48 Allergies/Adverse Reactions: Patient Allergies No Known Allergies Allergy (Verified 04/21/18 14:50) Height: 1.63 m Weight: 91.399 kg Patient Problems: Current Active Problems Chest pain (Acute) COVID-19 virus IgM antibody detected (Acute) Thrombocytopenia (Acute) Pulmonary nodule (Acute) Obesity (Acute) LVH (left ventricular hypertrophy) (Acute) Tricuspid regurgitation (Acute) HTN (hypertension) (Acute) Schizophrenia (Chronic) Mitral valve regurgitation (Chronic) Tobacco abuse (Chronic) - VTE Risk Labs: VTE Related Lab Results Hgb 15.5 g/dL (12.2-16.2) 09/25/19 03:43 Hct 44.5 % (37.0-47.0) 09/25/19 03:43 Plt Count 80 K/mm3 (142-424) L 09/25/19 03:43 BUN 7 mg/dl (7-17) D 09/25/19 03:43 Creatinine 0.60 mg/dl (0.52-1.04) 09/25/19 03:43 Estimated Creat Clear 147 mL/min (50-200) 09/25/19 03:43 Was VTE Risk Assessment Performed: Yes VTE Score: 2 VTE Risk Level: Very Low Risk - Prophylaxis Types of VTE Prophylaxis: TEDS Knee High (ELENI HOSE ORDER PLACED) Location of Applied Device: Not Applicable
--- NOTE | 2019-09-25 18:28 | PC.NURSE ---
Pt has had shower this evening. RR even and unlabored. Has done well this evening. Continues on RA. No complaints. NSR on tele. VSS. CB in reach.
[2019-09-26] VITALS (7 sets, daily range): BP systolic 132–147; BP diastolic 69–91; PULSE 60–89; RESP 18–19; TEMP 36.4–36.9; O2SAT 93–97; BMI 33.5
--- NOTE | 2019-09-26 03:39 | PC.NURSE ---
Addendum entered by Whitney Llanes RN 09/26/19 03:41: NSR NOTED ON PIPELAYING FITTER THIS SHIFT. Original Note: A&O X4. NO ACUTE CHANGES NOTED FROM PREVIOUS SHIFT. TOLERATED RA WELL WITH NO C/O SOA. DENIES COUGH. RR EVEN AND UNLABORED. RESTED WELL WITH EYES CLOSED T/O SHIFT. DENIES PAIN. NO EDEMA. TEDS ON BLE. VSS. REMAINS SAFE. AMB WELL INDEPENDENTLY IN ROOM. CALL LIGHT WITHIN REACH. WILL CONTINUE TO MONITOR.
--- NOTE | 2019-09-26 08:25 | HMH.ACPN2 ---
Internal Medicine - PN: Subj *Date: 09/27/19 *Time: 06:39 Interval history: doing better - has gram neg uti - will start abx Exam Vital signs and Labs for Last 24 Hours: Temp Pulse Resp BP Pulse Ox 98.0 F 80 18 132/77 97 09/26/19 03:56 09/26/19 04:00 09/26/19 03:56 09/26/19 03:56 09/26/19 03:56 Laboratory Results - last 24 hr 09/25/19 00:46: Urine Color Yellow, Urine Appearance Clear, Urine pH 7.0, Ur Specific [place] 1.015, Urine Protein Negative, Urine Glucose (UA) Negative, Urine Ketones Negative, Urine Blood Negative, Urine Nitrate Positive, Urine Bilirubin Negative, Urine Urobilinogen 0.2, Ur Leukocyte Esterase Negative, Urine Bacteria 2+ 09/25/19 07:53: Chlamy pneumoniae PCR Not detected, Adenovirus (PCR) Not detected, B. pertussis DNA (PCR) Not detected, Coronavirus OC43 (PCR) Not detected, Coronavirus HKU1 (PCR) Not detected, Coronavirus 229E (PCR) Not detected, COVID-19 PCR Not detected, Coronavirus NL63 (PCR) Not detected, Human Metapneumovir PCR Not detected, Influenza A (H1) PCR Not detected, Influ A (H1N1/09) PCR Not detected, Influenza A (H3) PCR Not detected, Influenza Type A (PCR) Not detected, Influenza Type B (PCR) Not detected, M. pneumoniae (PCR) Not detected, Parainfluenza 1 (PCR) Not detected, Parainfluenza 2 (PCR) Not detected, Parainfluenza 3 (PCR) Not detected, Parainfluenza 4 (PCR) Not detected, RSV (PCR) Not detected, Entero/Rhino (PCR) Not detected I & O for Last 24 hours: Intake & Output 09/23/19 09/24/19 09/25/19 09/26/19 11:59 11:59 11:59 11:59 Intake Total 600 / 600 2247 / 2247 Output Total 1550 / 1550 2300 / 2300 Balance -950 / -950 -53 / -53 Weight 201 lb 8 oz 196 lb 4 oz Microbiology Reports for the Last 24 Hours: Microbiology 09/25/19 00:46 Urine,Clean Catch Urine Culture - Preliminary Gram Negative Rods - Constitutional no acute distress, obese - *Routine HEENT Exam Head: Present: normocephalic Eye: Present: EOMI, PERRL ENT: Present: mucous membranes dry - *Routine Neck Exam Present: supple - *Routine Respiratory Exam Present: CTA bilaterally - *Routine Cardiovascular Exam Present: RRR, murmur - *Routine Abdominal Exam Present: soft - *Routine Extremities Exam Absent: calf tenderness - *Routine Skin Exam Present: intact - *Routine Neurological Exam Present: alert, CN II-XII intact - Routine Psychiatric Exam Present: normal affect Assessment and Plan (1) COVID-19 virus IgM antibody detected Current visit: Yes Status: Acute Category: Medical Code(s): Z01.84 - Encounter for antibody response examination (2) Chest pain Current visit: Yes Status: Acute Qualifiers: Chest pain type: precordial pain Qualified Code(s): R07.2 - Precordial pain Category: Medical Code(s): R07.9 - Chest pain, unspecified (3) HTN (hypertension) Current visit: Yes Status: Acute Qualifiers: Hypertension type: essential hypertension Qualified Code(s): I10 - Essential (primary) hypertension Category: Medical Code(s): I10 - Essential (primary) hypertension (4) LVH (left ventricular hypertrophy) Current visit: Yes Status: Acute Category: Medical Code(s): I51.7 - Cardiomegaly (5) Obesity Current visit: Yes Status: Acute Qualifiers: Obesity type: due to excess calories Obesity classification: adult class 3 (BMI >= 40) Serious obesity comorbidity presence: with serious comorbidity Body mass index: BMI 40.0-44.9 Qualified Code(s): E66.01 - Morbid (severe) obesity due to excess calories; Z68.41 - Body mass index (BMI) 40.0-44.9, adult Category: Medical Code(s): E66.9 - Obesity, unspecified (6) Pulmonary nodule Current visit: Yes Status: Acute Category: Medical Code(s): R91.1 - Solitary pulmonary nodule (7) Thrombocytopenia Current visit: Yes Status: Acute Category: Medical Code(s): D69.6 - Thrombocytopenia, unspecified (
[2019-09-26 08:35] LABS: Covid-19 Nasal PCR Sendout UK Not Detected
--- NOTE | 2019-09-26 09:57 | PC.NURSE ---
Spoke with Dr. Joseph and he stated pt could be d/cd from heart mx. Noted.
--- NOTE | 2019-09-26 15:49 | PC.NURSE ---
Pt is alert and oriented x 4 and able to make needs known. RR even and unlabored. Has had no c/o this shift, other than she is ready to go home. Plans to have an echo tomorrow. Dr. Joseph stated cardiac mx could be discontinued. Denies pain of dyspnea. Will cont to mx this shift. Earle hose in place to BLE. CB in reach.
--- NOTE | 2019-09-26 20:39 | PC.NURSE ---
ORDERED D/C IVF NOW. PT IS SL.
[2019-09-27] VITALS: BP 148/84; PULSE 79; RESP 16; TEMP 37.1; O2SAT 98
--- NOTE | 2019-09-27 02:49 | PC.NURSE ---
A&O X4. NO ACUTE CHANGES NOTED FROM PREVIOUS SHIFT. PT HAS RESTED WELL WITH EYES CLOSED T/O THIS SHIFT. NO C/O PAIN. BILATERAL LUNGS NOTED CLEAR T/O UPON AUSCULTATION. TOLERATED RA WELL WITH NO C/O SOA. IVF D/C PER MD THIS SHIFT, SL NOW. NO EDEMA NOTED. REFUSED TEDS. INDEPENDENT AMB IN ROOM, TOLERATES WELL. VSS. REMAINS SAFE. CALL LIGHT WITHIN REACH. WILL CONTINUE TO MONITOR.
[2019-09-27 03:32] VITALS: BP 148/76; PULSE 83; RESP 18; TEMP 36.9; O2SAT 92
[2019-09-27 05:00] VITALS: BMI 33.3
[2019-09-27 08:00] VITALS: BP 143/82; PULSE 85; RESP 20; TEMP 36.9; O2SAT 97
--- NOTE | 2019-09-27 08:00 | CA_ITS ---
APPROVED REPORT EXAM: Comprehensive 2D, Doppler, and color-flow Echocardiogram Molder Wax Ball: Estefany Carlisle CRT Ht: 5 ft 4 in Wt: 201lbs BSA: 1.96 BP: 158/94 mmHg Indications: Chest Pain, Hypertension/HDD, CVA, Cirrhosis, Schizophrenia, + covid 19 Antibodies 2D Dimensions LVOT 2.00 cm (M/F) 1.5-2.5 M-Mode Dimensions RVDd 2.12 cm (0.9-2.6) LVDd 4.74 cm (3.5-5.7) LVDs 2.90 cm (3.5-5.7) IVSd 1.12 cm (0.6-1.1) PWd 0.97 cm (0.6-1.1) EF (Teich) 69.20% FS 38.80% EDV (Teich) 104.40 mL ESV (Teich) 32.20 mL LV Diastology E/A Ratio 0.80 Mitral Valve MV A Velocity 123.00 (40-130 cm/s) Left Ventricle Left atrium is mildly enlarged, left ventricle is normal size, mild concentric left ventricular hypertrophy, visually estimated ejection fraction 55% with no regional wall motion abnormality, grade 1 diastolic dysfunction seen without tissue Doppler evidence of raise left atrial pressure. Right Ventricle Right atrium and right ventricular normal size and contractility. Aortic Valve Aortic valve is minimally thickened and fibrosed, there is no aortic stenosis or aortic insufficiency. Mitral Valve Mitral valve leaflets are minimally thickened, there is mild mitral regurgitation. Tricuspid Valve Tricuspid valve grossly normal, there is mild tricuspid regurgitation, calculated right ventricular systolic pressure 38 mmHg. Pulmonic Valve Pulmonic valve is poorly visualized. Great Vessels Aortic root is normal size. Pericardium No significant pericardial effusion noted. Conclusion 1. Mildly enlarged left atrium, normal left ventricular size, mild concentric left ventricular hypertrophy, visually estimated ejection fraction 55% with no regional wall motion abnormality, grade 1 diastolic dysfunction seen without tissue Doppler evidence of raise left atrial pressure. 2. Mild mitral and tricuspid regurgitation, calculated right ventricular systolic pressure 38 mmHg. 3. No significant pericardial effusion noted. Electronically signed by : Nomi Austin, 09/27/2019 19:27:56
--- NOTE | 2019-09-27 09:37 | HMH.CNCARD ---
History of Present Illness Consult date: 09/27/19 Requesting physician: Jenaro Joseph Consult reason: chest pain Chief complaint: chest pain Additional Medical History:: 1. History of CVA/TIA per medical records 2. History of schizophrenia 3. History of chest pain A. Lexiscan Myoview, 04/2017, no ischemia with EF 61%. B. Echocardiogram, 03/2017,2D 1. Left atrium is mildly enlarged, left ventricle is normal size, there is mild qualitative concentric left ventricular hypertrophy, visually estimated ejection fraction 55% with no obvious regional wall motion abnormality. 2. The right atrium and right ventricle are relatively normal size and function. 3. The aortic valve is minimally thickened and fibrosed. 4. The mitral valve has mitral calcification, leaflets are minimally thickened. 5. The pulmonic valve is poorly visualized. 6. Tricuspid valve is grossly normal. 7. No significant pericardial effusion noted. DOPPLER INTERROGATION: Doppler interrogation of the aortic, mitral and tricuspid valvular presence of moderate mitral and mild tricuspid regurgitation, tricuspid and jet velocity is insufficient for calculation of the right ventricular systolic pressure, grade 1 diastolic dysfunction seen with tissue Doppler evidence of raised left atrial pressure. CONCLUSION: 1. Mildly enlarged left atrium, normal left ventricular size, mild qualitative concentric left ventricular hypertrophy, visually estimated ejection fraction 55% with no obvious regional wall motion abnormality, grade 1 diastolic dysfunction seen with tissue Doppler evidence of raised left atrial pressure. 2. Mitral annular calcification, mitral leaflets are minimally thickened, there is no mitral stenosis, there is moderate mitral regurgitation. 3. Mild tricuspid regurgitation. 4. No significant pericardial effusion noted. 4. Tobacco use per records History of present illness: this pt from [facility] presents with progressive chest pain over the last week - no syncope or palpitations - pt was seen in the ed - Patient brought in by [facility] with reports of centralized chest pain that has been going on for a while pt with no def covid exposure and paucity of resp sx but has positive igm abx wf sent from [facility] with hx of chest pain over the last 2 weeks worse tonight - no fever or cough and no known ht dis - had echo and gxt in 2018 - no diabetes pt was admitted for eval and treatment The above per Dr. Joseph Patient seen in the hospital today and states that her chest pain is all gone and she wants to go home. Upon further questioning she confirms that she has had chest pain intermittently for several days to maybe 2weeks but she is unable to adequately quantify the length of time that the chest pain would stay. There is no radiation or associated symptoms with the chest pain. Preliminary echocardiogram shows normal ejection fraction. Cardiac troponins have been normal. EKG is sinus rhythm with no acute ST segment changes. Patient denies tobacco use, diabetes or history of treatment for hypertension [facility] History Medical History: Reports:: Anxiety, Cerebrovascular Accident, Transient Ischemic Attacks (TIA) Denies:: Cancer, Diabetes Mellitus Type 1, Diabetes Mellitus Type 2, MRSA *Have you ever received a pneumonia vaccine?: No *Have you received a flu vaccine this season?: Yes Other Surgeries: Yes: Cholecystectomy, Other Amputation: No Fractures: No - *Social History Smoking Status: Current every day smoker Tobacco Type: cigarettes # Packs/Day (cigarettes): 1 Alcohol Intake: never Alcohol Intake Frequency:: other Substance Use Type: denies use *Occupational Status:: disabled Housing: assisted living facility *Travel in the last 8 weeks: None - Psychiatric History Pschychiatric History:: Reports:: Anxiety Family Hx:: Coronary Artery Disease Meds Home Medications Medication Instructions Recorded Confirmed Type PARoxet
--- NOTE | 2019-09-27 09:47 | SW/DCPLANNER ---
Addendum entered by Elin Knapp 09/27/19 12:53: Pedro has stated this patient can discharge back to [facility] once stable for discharge. I will contact [facility] once patient is stable for discharge. Addendum entered by Elin Knapp 09/27/19 11:33: I have informed Pedro that this patient has received TWO NEGATIVE COVID SWABS. Pedro has requested documentation be faxed to her, she will review then make decision regarding patient being accepted back to [facility] vs placement. Original Note: This patient currently resides at [facility]. Pedro from [facility] has contacted me this morning regarding this patient. Pedro has requested that patient information be faxed to Johanny at [facility] regarding (+) COVID blood test. Patient information has been faxed to Johanny. [facility] ([facility]): fax [phone]
--- NOTE | 2019-09-27 11:55 | HMH.DCSUM ---
General - General Admission date:: 09/25/19 Discharge date: 09/27/19 HPI HPI: this pt [facility] presents with progressive chest pain over the last week - no syncope or palpitations - pt was seen in the ed - Patient brought in by [facility] with reports of centralized chest pain that has been going on for a while pt with no def covid exposure and paucity of resp sx but has positive igm abx wf sent from [facility] with hx of chest pain over the last 2 weeks worse tonight - no fever or cough and no known ht dis - had echo and gxt in 2018 - no diabetes pt was admitted for eval and treatment Hospital Course Hospital Course: pt has did well with no more chest pain with stable vital signs - she was seen by card - History of CVA/TIA per medical records 2. History of schizophrenia 3. History of chest pain A. Lexiscan Myoview, 04/2017, no ischemia with EF 61%. B. Echocardiogram, 03/2017,2D 1. Left atrium is mildly enlarged, left ventricle is normal size, there is mild qualitative concentric left ventricular hypertrophy, visually estimated ejection fraction 55% with no obvious regional wall motion abnormality. 2. The right atrium and right ventricle are relatively normal size and function. 3. The aortic valve is minimally thickened and fibrosed. 4. The mitral valve has mitral calcification, leaflets are minimally thickened. 5. The pulmonic valve is poorly visualized. 6. Tricuspid valve is grossly normal. 7. No significant pericardial effusion noted. DOPPLER INTERROGATION: Doppler interrogation of the aortic, mitral and tricuspid valvular presence of moderate mitral and mild tricuspid regurgitation, tricuspid and jet velocity is insufficient for calculation of the right ventricular systolic pressure, grade 1 diastolic dysfunction seen with tissue Doppler evidence of raised left atrial pressure. CONCLUSION: 1. Mildly enlarged left atrium, normal left ventricular size, mild qualitative concentric left ventricular hypertrophy, visually estimated ejection fraction 55% with no obvious regional wall motion abnormality, grade 1 diastolic dysfunction seen with tissue Doppler evidence of raised left atrial pressure. 2. Mitral annular calcification, mitral leaflets are minimally thickened, theres pt from [facility] presents with progressive chest pain over the last week - no syncope or palpitations - pt was seen in the ed - Patient brought in by [facility] with reports of centralized chest pain that has been going on for a while pt with no def covid exposure and paucity of resp sx but has positive igm abx wf sent from [facility] home with hx of chest pain over the last 2 weeks worse tonight - no fever or cough and no known ht dis - had echo and gxt in 2018 - no diabetes pt was admitted for eval and treatment Patient seen in the hospital today and states that her chest pain is all gone and she wants to go home. Upon further questioning she confirms that she has had chest pain intermittently for several days to maybe 2weeks but she is unable to adequately quantify the length of time that the chest pain would stay. There is no radiation or associated symptoms with the chest pain. Preliminary echocardiogram shows normal ejection fraction. Cardiac troponins have been normal. EKG is sinus rhythm with no acute ST segment changes. Patient denies tobacco use, diabetes or history of treatment for hypertension is no mitral stenosis, there is moderate mitral regurgitation. 3. Mild tricuspid regurgitation. 4. No significant pericardial effusion noted. 4. Tobacco use Chest pain with no EKG changes and normal troponins x3. History of normal cardiac work-up 04/2017. Recommend adding aspirin 81 mg daily and continue bisoprolol 5 mg daily. Patient could be discharged home for outpatient work-up including Lexiscan Myoview in the near future. Patient does not wish to pursue further work-up in the hospital at this time.
[2019-09-27 12:00] VITALS: BP 153/80; PULSE 72; RESP 18; TEMP 37.1; O2SAT 100
--- NOTE | 2019-09-27 13:29 | SW/DCPLANNER ---
TRANSPORTATION WAS SET UP FOR PATIENT TO RETURN BACK TO HER PERSONAL LONG-TERM ([facility])... PATIENT IS DISCHARGING BACK TODAY...
--- NOTE | 2019-09-27 13:56 | PC.NURSE ---
THIS RN PROVIDED D/C INSTRUCTIONS TO PATIENT ABOUT HYPERTENSION AND CHEST PAIN, PATIENT VERBALIZED AN UNDERSTANDING. THIS RN WENT OVER NEW MEDICATIONS PRESCRIBED. THIS RN SPOKE WITH PENNY AT [facility], PROVIDED REPORT AND NEW MEDICATION INFORMATION. PENNY INFORMED THIS RN THAT [facility] IN [place]. [facility] CALLED [facility]. THIS RN PHONED PHARMACY AND INFORMED LOTUS OF CHANGES. NO OTHER NEEDS OR CONCERNS AT THIS TIME.
== END 2019-09-27 13:53 | disposition home or self-care (01) ==
LOC: ER 20:57 → ICU 09-25 01:58 → 2ND 09-25 11:32
PROVIDERS: Internal Medicine Adolescent Medicine; Admitting Provider Emergency Medicine; Emergency Provider Emergency Medicine; PCP Emergency Medicine; Visit Provider Emergency Medicine
DX: R07.9 Chest pain, unspecified (principal); N39.0 Urinary tract infection, site not specified; Z86.19 Personal history of other infectious and parasitic diseases; I51.7 Cardiomegaly; R91.1 Solitary pulmonary nodule; F20.9 Schizophrenia, unspecified; Z72.0 Tobacco use; I07.1 Rheumatic tricuspid insufficiency; I34.0 Nonrheumatic mitral (valve) insufficiency
CPT/HCPCS: 36415; 71046; 71250; 80048; 80053; 80061; 81001; 82150; 83690; 83735; 84484; 85025; 86328; 87040; 87086; 87088; 87186; 87581; 87633; 87798; 93005; 93306; 99285; G0378; J1335; U0003

== ENCOUNTER → 2020-06-07 08:24 | Outpatient (CLI) | payer MEDICAID, SELFPAY ==
--- NOTE | 2020-06-07 08:28 | FL_ITS ---
PROCEDURE: FL BARIUM SWALLOW CLINICAL INDICATION: DYSPHAGIA COMPARISON: No exams were available for comparison TECHNIQUE: In the upright position the patient was observed to swallow barium in both the AP and lateral view. The cervical esophagus was examined under fluoroscopy with images obtained. The patient was then placed prone in the right anterior oblique position and was observed to swallow barium with Valsalva technique . FLUOROSCOPY TIME: 0.28 seconds FINDINGS: There was no evidence of aspiration. There was normal peristalsis. No filling defects or mucosal abnormalities. No masses or strictures. Small hiatus hernia is noted. IMPRESSION: Small hiatus hernia. Otherwise unremarkable study. Dictated by: Temitope Garay 06/07/2020 14:20 Temitope Garay in [facility] 06/07/2020 14:20
== END ==
PROVIDERS: PCP Emergency Medicine; Visit Provider Emergency Medicine
DX: R13.10 Dysphagia, unspecified (principal)
CPT/HCPCS: 74220

== ENCOUNTER 2020-11-07 13:21 | Observation (INO) | payer MEDICAID, SELFPAY ==
[2020-11-07] VITALS (7 sets, daily range): BP systolic 89–115; BP diastolic 42–56; PULSE 59–78; RESP 18–19; TEMP 36.9–37; O2SAT 96–98; BMI 25.7; BMI 28.8
--- NOTE | 2020-11-07 13:45 | PC.NURSE ---
Wound culture collected by and sent to lab.
[2020-11-07 13:46] LABS: Basophils % 0.2 % (0.1-2.0); Eosinophils % 0.1 % (0.1-12.0); Hemoglobin 13.4 g/dL (12.2-16.2); Lymphocytes # 1.2 K/mm3 (0.7-4.5); Lymphocytes % 11.2 % (10-50); Mean Corpuscular HGB Conc 34.3 g/dL (31.8-35.4); Mean Corpuscular Hemoglobin 31.8 pg (27.0-31.2); Mean Corpuscular Volume 92.7 fl (81-99); Mean Platelet Volume 8.7 fl (7.4-10.4); Monocytes # 0.4 K/mm3 (0.1-1.0); Monocytes % 3.9 % (1.7-9.3); Neutrophils # 8.9 K/mm3 (1.8-7.8); Neutrophils % 84.6 % (37.0-80.0); Platelet Count 125 K/mm3 (142-424); Red Blood Count 4.21 M/mm3 (4.20-5.40); Red Cell Distribution Width 13.3 % (11.5-17.5); White Blood Count 10.5 K/mm3 (4.8-10.8)
--- NOTE | 2020-11-07 13:47 | HMH.EDGENADL ---
ED Disposition Clinical Impression: Abscess of back, COVID-19 virus infection Hypotension Qualifiers: Hypotension type: unspecified hypotension type Qualified Code(s): I95.9 - Hypotension, unspecified Pneumonia Qualifiers: Pneumonia type: due to unspecified organism Laterality: left Lung location: lower lobe of lung Qualified Code(s): J18.9 - Pneumonia, unspecified organism Disposition: Admitted as Observation Condition on Discharge: Good - Critical Care Critical Care Time: No Attestation: On 11/07/20, the high probability of a clinically significant, sudden or life threatening deterioration of the following system(s) required my full and direct attention, intervention and personal management. The time I documented below is in addition to time spent performing reported procedures but includes the following listed in this critical care notation. Medical Decision Making - Jm Inquiry Pt receiving controlled substance: No Vital Signs: 11/07/20 13:21 11/07/20 14:01 11/07/20 14:32 Temperature 98.4 F Temperature Source Oral Pulse Rate 68 63 Pulse Rate [Right Radial] 78 Respiratory Rate 18 Blood Pressure 106/51 L 114/55 L Blood Pressure [Right Arm] 89/42 L Blood Pressure Mean 65 68 Blood Pressure Mean [Right Arm] 57 Blood Pressure Source [Right Arm] Automatic Cuff Blood Pressure Position [Right Arm] Sitting 02 Sat by Pulse Oximetry 96 97 96 Oxygen Delivery Method Room Air - Lab Data Lab Results 11/07/20 13:35: WBC 10.5, RBC 4.21, Hgb 13.4, Hct 39.0, MCV 92.7, MCH 31.8 H, MCHC 34.3, RDW 13.3, Plt Count 125 L, MPV 8.7, Neut % (Auto) 84.6 H, Lymph % (Auto) 11.2, [place] % (Auto) 3.9, Eos % (Auto) 0.1, Baso % (Auto) 0.2, Neut # (Auto) 8.9 H, Lymph # (Auto) 1.2, [place] # (Auto) 0.4, Eos # (Auto) 0.0, Baso # (Auto) 0.0 11/07/20 13:35: Sodium 136, Potassium 3.3 L, Chloride 100, Carbon Dioxide 28, Anion Gap 11.3, BUN 16, Creatinine 1.10 H, Estimated Creat Clear 59, Estimated GFR 51 L, Est GFR ( Amer) 62, Glucose 85, Calcium 8.3 L, Total Bilirubin 0.8, AST 56 H, ALT 33, Alkaline Phosphatase 88, Total Protein 6.5, Albumin 3.2 L, Globulin 3.3 H, Albumin/Globulin Ratio 1.0 L 11/07/20 13:35: Lactate 1.2 11/07/20 14:12: SARS-CoV-2 (PCR) Detected A, Influenza A Untype (PCR) Not detected, Influenza Type B (PCR) Not detected Result diagrams: 11/07/20 13:35 11/07/20 13:35 Orders (Tests/Meds): ED MEDICATIONS Generic Name Dose Route Start Last Admin Trade Name Freq PRN Reason Stop Dose Admin Vancomycin HCl 1,250 mg/ 250 mls @ 125 mls/hr 11/08/20 14:00 Sodium Chloride IV 11/22/20 13:59 Q24H JOSE Levofloxacin/Dextrose 750 mg in 150 mls @ 100 mls/hr 11/07/20 15:45 Levofloxacin 750mg/150ml Premix IV 11/21/20 15:44 Q24H JOSE Miscellaneous 1 each 11/07/20 13:45 Vancomycin Consult Request * 12/07/20 13:44 CONSULT PHARMACY JOSE Discontinued Medications Generic Name Dose Route Start Last Admin Trade Name Freq PRN Reason Stop Dose Admin Dexamethasone Sodium Phosphate 6 mg 11/07/20 15:40 Dexamethasone 4mg/Ml 1ml Vial IV 11/07/20 15:41 ONCE ONE Sodium Chloride 1,000 mls @ 999 mls/hr 11/07/20 13:30 11/07/20 14:09 Sod Chlor 0.9% 1000ml Bag IV 11/07/20 14:30 999 mls/hr .Q1H1M JOSE Administration Vancomycin HCl 1,250 mg/ 250 mls @ 125 mls/hr 11/07/20 13:45 11/07/20 14:09 Sodium Chloride IV 11/07/20 15:44 125 mls/hr ONCE ONE Administration ORDERS Category Date Time Status Consult to On-Call Gen'l Surgeon [CONS] Routine Cons 11/07/20 13:31 Ordered Blood Culture Stat Micro 11/07/20 13:35 Received Wound Culture and Gram Stain Stat Micro 11/07/20 13:30 Results - Radiology Data #1 Image(s): Chest Image Reviewed: Yes I reviewed the patient's radiology image, Yes I have reviewed radiologist's interpretation PROCEDURE: XR CHEST PORTABLE CLINICAL HISTORY: covid +, cough COMPARISON: DX CXR2 XR chest AP from 0
[2020-11-07 13:52] LABS: Chloride 100 mmol/L (98-107)
[2020-11-07 13:53] LABS: Potassium 3.3 mmoL/L (3.5-5.1); Sodium 136 mmol/L (136-145)
[2020-11-07 13:55] LABS: Alanine Aminotransferase 33 U/L (12-78); Albumin Level 3.2 g/dl (3.5-5.0); Alkaline Phosphatase 88 U/L (38-126); Anion Gap 11.3 mEq/L (5-15); Aspartate Amino Transferase 56 U/L (14-36); Bilirubin,Total 0.8 mg/dl (0.2-1.3); Blood Urea Nitrogen 16 mg/dl (7-17); Carbon Dioxide 28 mmol/L (22.0-30.0); Creatinine Clearance Estimated 59 mL/min (50-200); Estimated Glomerular Filt Rate 51 ml/min (>60); GFR (African American) 62 ML/MIN (>60); Globulin 3.3 g/dL (1.3-3.2); Total Protein,Serum 6.5 g/dl (6.3-8.2)
[2020-11-07 13:56] LABS: Calcium 8.3 mg/dl (8.4-10.2); Glucose 85 mg/dl (74-100)
[2020-11-07 13:58] LABS: Lactic Acid 1.2 mmol/L (0.7-2.1)
--- NOTE | 2020-11-07 14:07 | HMH.PHACONS ---
- Pharmacy Consult Date: 11/07/20 Time: 14:07 Referring provider: DR. COOK Reason for Consult:: VANCOMYCIN DOSING Allergies and ADEs:: Allergies Allergy/AdvReac Type Severity Reaction Status Date / Time No Known Allergies Allergy Verified 04/21/18 14:50 Home Medications:: Home Medications Medication Instructions Recorded Confirmed Type PARoxetine HCL [Paroxetine HCl] 30 mg PO DAILY 03/24/17 09/25/19 History Tizanidine HCl [Zanaflex 4mg 4 mg PO DAILY 03/24/17 09/25/19 History tablet] hydrOXYzine HCL [Hydroxyzine HCl] 25 mg PO Q4HP PRN 03/24/17 09/25/19 History risperiDONE [Risperidone] 3 mg PO HS 03/24/17 09/25/19 History acetaminophen 500 mg tablet 500 mg PO Q8HP PRN tab 04/11/17 09/25/19 History guaifenesin 100 mg/5 mL oral liquid 200 mg PO Q4H PRN 04/11/17 09/25/19 History promethazine 25 mg tablet 25 mg PO Q6H PRN 04/11/17 09/25/19 History Oxybutynin Chloride [Ditropan Xl] 10 mg PO DAILY 09/25/19 09/25/19 History buPROPion HCL [Bupropion Xl] 300 mg PO DAILY 09/25/19 09/25/19 History bisoproloL fumarate [Zebeta 5mg 5 mg PO DAILY tab 09/27/19 Rx tablet] cephALEXin [Keflex 500mg Cap] 500 mg PO TID #30 cap 09/27/19 Rx aspirin 81 mg chewable tablet See Rx Instructions .ROUTE 04/10/20 Rx .COMPLEX #7 tablet Height: 1.63 m Weight: 68.039 kg Laboratory Results:: Laboratory Results - last 24 hr 11/07/20 13:35: WBC 10.5, RBC 4.21, Hgb 13.4, Hct 39.0, MCV 92.7, MCH 31.8 H, MCHC 34.3, RDW 13.3, Plt Count 125 L, MPV 8.7, Neut % (Auto) 84.6 H, Lymph % (Auto) 11.2, [place] % (Auto) 3.9, Eos % (Auto) 0.1, Baso % (Auto) 0.2, Neut # (Auto) 8.9 H, Lymph # (Auto) 1.2, [place] # (Auto) 0.4, Eos # (Auto) 0.0, Baso # (Auto) 0.0 11/07/20 13:35: Sodium 136, Potassium 3.3 L, Chloride 100, Carbon Dioxide 28, Anion Gap 11.3, BUN 16, Creatinine 1.10 H, Estimated Creat Clear 59, Estimated GFR 51 L, Est GFR ( Amer) 62, Glucose 85, Calcium 8.3 L, Total Bilirubin 0.8, AST 56 H, ALT 33, Alkaline Phosphatase 88, Total Protein 6.5, Albumin 3.2 L, Globulin 3.3 H, Albumin/Globulin Ratio 1.0 L 11/07/20 13:35: Lactate 1.2 Medical History: Reports:: Anxiety, Cerebrovascular Accident, Transient Ischemic Attacks (TIA) Denies:: Cancer, Diabetes Mellitus Type 1, Diabetes Mellitus Type 2, MRSA Assessment and Plan - Assessment and plan all Dx Assessment and Plan for all problems:: Pharmacokinetic dosing service Objective: Patient: Floor: Age: 60 yo Serum creatinine: 1.10 mg/dL Height: 64.0 Inches Weight (kg): 68 Assessment: IBW (kg): 54.70 Dosing wt(kg): 68 Estimated Creatinine clearance (ml/min): 47.6 CRCL method: Cockcroft and Gault using ibw(default). Drug selected: Vancomycin Loading dose (mg): Vd (liters): 47.6 (factor used: 0.7 L/kg) Lukas (hr-1): 0.044 Half life (hrs): 15.75 CLvanco=?? 2.094 L/hr Recommended dose: 1250 mg Interval: 24 hrs Infusion time (hrs): 2.0 Predicted peak (mcg/mL): 38.5 Predicted trough (mcg/mL): 14.62 Total body weight is being used for vancomycin dosing. Recommendations: Give Vancomycin 1250 mg q 24 hrs with an expected Cpeak of 38.5 mcg/ml and an expected Ctrough of 14.62 mcg/ml AUC 0-24 /CIRA Data: CIRA 0.5 mcg/mL:?? AUC/CIRA:? 1193.9 CRIA 1.0 mcg/mL:?? AUC/CIRA:? 596.9 --------- CIRA 1.5 mcg/mL:?? AUC/CIRA:? 398.0 CIRA 2.0 mcg/mL:?? AUC/CIRA:? 298.5 Thank you for the consult, will continue to follow. -LOTUS GUTIERREZ, DEED
[2020-11-07 14:16] LABS: Influenza A, PCR Not Detected (NotDetected); Influenza B, PCR Not Detected (NotDetected)
--- NOTE | 2020-11-07 14:19 | PC.NURSE ---
notified household appliance assembler of admission
[2020-11-07 14:43] LABS: Coronavirus 19, PCR Detected (NotDetected)
--- NOTE | 2020-11-07 14:50 | XR_ITS ---
PROCEDURE: XR CHEST PORTABLE CLINICAL HISTORY: covid +, cough COMPARISON: DX CXR2 XR chest AP from 03/24/2017 CR CXR2V XR chest 2V from 03/26/2017 CR XR CHEST 2V from 09/24/[address] CHEST WO CON from 09/24/2019 FINDINGS: The cardiomediastinal silhouette and pulmonary vascularity are within normal limits. Consolidation is present in the left lower lobe consistent with pneumonia. There is a partially calcified nodule in the right upper lobe. No evidence of pneumothorax. No acute bony abnormalities. IMPRESSION: Left lower lobe pneumonia Dictated by: Zak Peterson MD 11/07/2020 15:48 Zak Peterson MD in [facility] 11/07/2020 15:48
--- NOTE | 2020-11-07 14:51 | PC.NURSE ---
Called [facility] in care management for an admission bed.
--- NOTE | 2020-11-07 15:00 | PC.NURSE ---
Pt up to the bathroom at this time.
--- NOTE | 2020-11-07 15:16 | PC.NURSE ---
peter MCDOWELL called for update on patient
--- NOTE | 2020-11-07 15:23 | PC.NURSE ---
waiting transportation maintenance specialist back from DR. Joseph
--- NOTE | 2020-11-07 15:28 | PC.NURSE ---
report called to norma jacques at this time while on the phone giving report ER states not to send pt up for admission yet. Will notify elzbieta when pt is ready.
--- NOTE | 2020-11-07 16:31 | PC.NURSE ---
Dr Arciniega speaking with Dr Busch
--- NOTE | 2020-11-07 18:33 | HMH.GSCON ---
*Admission Date: 11/07/20 *Reason for consult:: Right upper back/scapula region abscess *History of present illness: This is a 60-year-old female seen in consultation from Dr. Joseph for evaluation regarding a right upper back/scapular region abscess. She notes a large abscess that drained a week or 2 ago . Evaluation today revealed surrounding cellulitis and the decision was made to admit for further evaluation and management, IV antibiotics, and surgical consultation. NOTE: SARS-CoV-2 PCR positive. Review of Systems - Constitutional Denies fever(s) - *Cardiovascular Denies chest pain - *Respiratory Reports cough [facility] History Medical History: Reports:: Anxiety, Cerebrovascular Accident, Transient Ischemic Attacks (TIA) Denies:: Cancer, Diabetes Mellitus Type 1, Diabetes Mellitus Type 2, MRSA *Have you ever received a pneumonia vaccine?: Yes *Have you received a flu vaccine this season?: Yes Other Surgeries: Yes: Cholecystectomy, Other Amputation: No Fractures: No - *Social History Smoking Status: Never smoker Tobacco Type: cigarettes # Packs/Day (cigarettes): 1 Alcohol Intake: never Alcohol Intake Frequency:: other Substance Use Type: denies use *Occupational Status:: disabled Housing: assisted living facility *Travel in the last 8 weeks: None - Psychiatric History Pschychiatric History:: Reports:: Anxiety Family Hx:: Unable to obtain Meds Home Medications Medication Instructions Recorded Confirmed Type PARoxetine HCL [Paroxetine HCl] 30 mg PO DAILY 03/24/17 11/07/20 History Tizanidine HCl [Zanaflex 4mg 4 mg PO DAILY 03/24/17 11/07/20 History tablet] hydrOXYzine HCL [Hydroxyzine HCl] 25 mg PO Q4HP PRN 03/24/17 11/07/20 History risperiDONE [Risperidone] 3 mg PO HS 03/24/17 11/07/20 History acetaminophen 500 mg tablet 500 mg PO Q8HP PRN tab 04/11/17 11/07/20 History promethazine 25 mg tablet 25 mg PO Q6H PRN 04/11/17 11/07/20 History Oxybutynin Chloride [Ditropan Xl] 10 mg PO DAILY 09/25/19 11/07/20 History buPROPion HCL [Bupropion Xl] 300 mg PO DAILY 09/25/19 11/07/20 History Aspirin See Rx Instructions .ROUTE .COMPLEX 11/07/20 11/07/20 History Loperamide HCl [Loperamide] 2 mg PO Q6 PRN 11/07/20 11/07/20 History Mag Hydrox/Aluminum Hyd/Simeth 30 ml PO Q4-6H 11/07/20 11/07/20 History [Antacid-Antigas Liquid] Nystatin [Nystatin Oint 100,000 15 gm TP NEEDED PRN 11/07/20 11/07/20 History Units/GM 15GM] bisoproloL fumarate [Zebeta 5mg 5 mg PO DAILY 11/07/20 11/07/20 History tablet] Allergies Allergy/AdvReac Type Severity Reaction Status Date / Time No Known Allergies Allergy Verified 04/21/18 14:50 Exam Vital signs and Labs for Last 24 Hours: Temp Pulse Resp BP Pulse Ox 98.4 F 70 18 114/55 L 96 11/07/20 17:15 11/07/20 17:15 11/07/20 17:15 11/07/20 17:15 11/07/20 14:32 Laboratory Results - last 24 hr 11/07/20 13:35: WBC 10.5, RBC 4.21, Hgb 13.4, Hct 39.0, MCV 92.7, MCH 31.8 H, MCHC 34.3, RDW 13.3, Plt Count 125 L, MPV 8.7, Neut % (Auto) 84.6 H, Lymph % (Auto) 11.2, [place] % (Auto) 3.9, Eos % (Auto) 0.1, Baso % (Auto) 0.2, Neut # (Auto) 8.9 H, Lymph # (Auto) 1.2, [place] # (Auto) 0.4, Eos # (Auto) 0.0, Baso # (Auto) 0.0 11/07/20 13:35: Sodium 136, Potassium 3.3 L, Chloride 100, Carbon Dioxide 28, Anion Gap 11.3, BUN 16, Creatinine 1.10 H, Estimated Creat Clear 59, Estimated GFR 51 L, Est GFR ( Amer) 62, Glucose 85, Calcium 8.3 L, Total Bilirubin 0.8, AST 56 H, ALT 33, Alkaline Phosphatase 88, Total Protein 6.5, Albumin 3.2 L, Globulin 3.3 H, Albumin/Globulin Ratio 1.0 L 11/07/20 13:35: Lactate 1.2 11/07/20 14:12: SARS-CoV-2 (PCR) Detected A, Influenza A Untype (PCR) Not detected, Influenza Type B (PCR) Not detected I & O for Last 24 hours: Intake & Output 11/05/20 11/06/20 11/07/20 11/08/20 11:59 11:59 11:59 11:59 Weight 150 lb Microbiology Reports for the Last 24 Hours: Microbiology 11/07/20 13:30 Shoulder,Right Gram Stain - Final -
--- NOTE | 2020-11-07 20:27 | HMH.HP ---
*Admission Date: 11/07/20 *Chief complaint: skin infection *History of present illness: this patient is from local [facility]-pt has progressive pain and drainage from scapular infection -pt has 4 open areas noted on R scapula that pt states has been present for approx 2-3 weeks. Pt states area began as a boil and just got worse . Pt states area is painful. Redness surrounding open areas, yellow drainage noted. Pt states unknown fevers. The patient is brought in by Dr. Joseph from [facility]. He reports patient has a large abscess on her right scapular area and will need intravenous vancomycin, admission, and surgical consultation. Patient states she has had pain in that area for 2 weeks. She denies fever. No injury to that area. She is not diabetic. She has been vaccinated against COVID-19. pt was admitted for ivf and abx and surg consult - [facility] History I have reviewed the patient's past medical history: Yes Medical History: Reports:: Anxiety, Cerebrovascular Accident, Transient Ischemic Attacks (TIA) Denies:: Cancer, Diabetes Mellitus Type 1, Diabetes Mellitus Type 2, MRSA *Have you ever received a pneumonia vaccine?: Yes *Have you received a flu vaccine this season?: Yes Other Surgeries: Yes: Cholecystectomy, Other Amputation: No Fractures: No - *Social History Smoking Status: Never smoker Tobacco Type: cigarettes # Packs/Day (cigarettes): 1 Alcohol Intake: never Alcohol Intake Frequency:: other Substance Use Type: denies use *Occupational Status:: disabled Housing: assisted living facility *Travel in the last 8 weeks: None - Psychiatric History Pschychiatric History:: Reports:: Anxiety Family Hx:: Unable to obtain Review of Systems - Review of Systems Review of systems:: pertinent systems reviewed and negative unless documented below - Constitutional Denies fever(s) - Eyes Denies discharge - ENT Denies sore throat - *Cardiovascular Denies chest pain at rest - *Respiratory Denies cough - *Gastrointestinal Denies abdominal pain - *Genitourinary Denies pelvic pain - *Musculoskeletal Denies joint pain - Integumentary/Breasts Reports boil, Denies rash - *Neurologic Denies headache(s), Denies seizure-like activity - Psychiatric Denies anxiety Meds Home Medications Medication Instructions Recorded Confirmed Type PARoxetine HCL [Paroxetine HCl] 30 mg PO DAILY 03/24/17 11/07/20 History Tizanidine HCl [Zanaflex 4mg 4 mg PO DAILY 03/24/17 11/07/20 History tablet] hydrOXYzine HCL [Hydroxyzine HCl] 25 mg PO Q4HP PRN 03/24/17 11/07/20 History risperiDONE [Risperidone] 3 mg PO HS 03/24/17 11/07/20 History acetaminophen 500 mg tablet 500 mg PO Q8HP PRN tab 04/11/17 11/07/20 History promethazine 25 mg tablet 25 mg PO Q6H PRN 04/11/17 11/07/20 History Oxybutynin Chloride [Ditropan Xl] 10 mg PO DAILY 09/25/19 11/07/20 History buPROPion HCL [Bupropion Xl] 300 mg PO DAILY 09/25/19 11/07/20 History Aspirin See Rx Instructions .ROUTE .COMPLEX 11/07/20 11/07/20 History Loperamide HCl [Loperamide] 2 mg PO Q6 PRN 11/07/20 11/07/20 History Mag Hydrox/Aluminum Hyd/Simeth 30 ml PO Q4-6H 11/07/20 11/07/20 History [Antacid-Antigas Liquid] Nystatin [Nystatin Oint 100,000 15 gm TP NEEDED PRN 11/07/20 11/07/20 History Units/GM 15GM] bisoproloL fumarate [Zebeta 5mg 5 mg PO DAILY 11/07/20 11/07/20 History tablet] Allergies Allergy/AdvReac Type Severity Reaction Status Date / Time No Known Allergies Allergy Verified 04/21/18 14:50 Exam Vital signs and Labs for Last 24 Hours: Temp Pulse Resp BP Pulse Ox 98.6 F 71 19 109/55 L 96 11/07/20 20:00 11/07/20 20:00 11/07/20 20:00 11/07/20 20:00 11/07/20 20:00 Laboratory Results - last 24 hr 11/07/20 13:35: WBC 10.5, RBC 4.21, Hgb 13.4, Hct 39.0, MCV 92.7, MCH 31.8 H, MCHC 34.3, RDW 13.3, Plt Count 125 L, MPV 8.7, Neut % (Auto) 84.6 H, Lymph % (Auto) 11.2, [place] % (Auto) 3.9, Eos % (Auto) 0.1, Baso %
[2020-11-08] VITALS (8 sets, daily range): BP systolic 107–160; BP diastolic 57–84; PULSE 62–81; RESP 18–20; TEMP 36.7–39.4; O2SAT 92–97; BMI 29.0
--- NOTE | 2020-11-08 04:13 | PC.NURSE ---
No drainage noted on dressing this shift; dressing is still c/d/i. Administered Tylenol x 1 for pain scale 5/10. No s/s of acute distress noted this shift, call light within reach, bed at lowest level for safety; will continue to monitor.
--- NOTE | 2020-11-08 09:13 | SW/DCPLANNER ---
Addendum entered by [facility] 11/09/20 13:37: At this point Adeline (Charline Sanchez) is agreeable to transport this patient back to [facility] today. And I have informed Pedro that this patient does not have an insurance that can be billed for supplies and patient will be responsible for her own. Pedro has stated that this patient can purchase her own supplies and these can be purchased at [facility]. This patient will discharge today. I will ask Aj with [facility] to follow up with this patient in 10 days to begin services. Addendum entered by [facility] 11/09/20 13:10: [facility] has stated that she is not responsible for transportation for this patient nor supplies for dressing changes and they can not accept this patient back until both are solved. This patient does not have an insurance that is in network with the following home health agencies: [facility], [facility] and [facility]. [facility] is in network with this patients insurance however they do not accept referrals for services until 10 days past positive test. I did speak with Aj at [facility] and she has stated that she will review the referral and see if they can bill for supplies/donate supplies. I will follow up with Aj once patient information is reviewed. I also spoke with [facility] (Kely Sanchez) whom is working to help find a solution regarding transportation. Patient is medically stable for discharge. Addendum entered by [facility] 11/09/20 11:38: I contacted patients daughter and she is not able to transport this patient due to living in [place] and having to be at work. Addendum entered by [facility] 11/09/20 11:22: Donna with [facility] is currently reviewing patients insurance information is see if they are in network to do dressing changes. Pedro with [facility] has stated they do not have transportation for this patient: [facility] will not transport due to COVID positive and Becca with ambulance has stated their schedule is full for today and they can not transport. Patient is ambulatory and does not require oxygen. I have relayed information to Pedro with [facility] and she will speak with her boss regarding transportation. Addendum entered by [facility] 11/09/20 09:40: Chandni has stated that patient is medically stable for discharge. [facility] information was [facility] to [facility]. Pedro has stated that she has not reviewed information and will need to review prior to being able to accept patient back today. I will continue to follow up with Pedro. Addendum entered by Elin Knapp 11/08/20 14:35: Updated patient information has been faxed to Pedro at [facility]. Original Note: This patient currently resides at [facility]. I will follow up with Pedro at [facility] once discharge date is known.
--- NOTE | 2020-11-08 11:21 | HMH.PULMCON ---
*Admission Date: 11/07/20 *Reason for consult:: COVID-19 pneumonia *History of present illness: Ms. Mosley is a 60-year-old female no prior respiratory complaints not on any oxygen or inhaler therapy at baseline was presented to the hospital for evaluation of her scapular region abscess found to be COVID-19 positive on routine testing and pulmonary was called for further management. Patient denies any respiratory complaints. She admits her breathing is at her baseline. [facility] History Medical History: Reports:: Anxiety, Cerebrovascular Accident, Transient Ischemic Attacks (TIA) Denies:: Cancer, Diabetes Mellitus Type 1, Diabetes Mellitus Type 2, MRSA *Have you ever received a pneumonia vaccine?: Yes *Have you received a flu vaccine this season?: Yes Other Surgeries: Yes: Cholecystectomy, Other Amputation: No Fractures: No - *Social History Smoking Status: Never smoker Tobacco Type: cigarettes # Packs/Day (cigarettes): 1 Alcohol Intake: never Alcohol Intake Frequency:: other Substance Use Type: denies use *Occupational Status:: disabled Housing: assisted living facility *Travel in the last 8 weeks: None - Psychiatric History Pschychiatric History:: Reports:: Anxiety Family Hx:: Unable to obtain ROS - Cons Reports anorexia, Reports body ache(s), Reports chills - Card Denies shortness of breath, Denies shortness of breath with activity - Resp Respiratory: Reports chest congestion, Reports non-productive cough, Denies dyspnea on exertion, Denies excessive phlegm production - GI Gastrointestingal: Denies: abdominal pain - [place] Musculoskeletal: Reports back pain - Psych Reports abnormal sleep pattern, Denies change in appetite Meds Home Medications Medication Instructions Recorded Confirmed Type PARoxetine HCL [Paroxetine HCl] 30 mg PO DAILY 03/24/17 11/07/20 History Tizanidine HCl [Zanaflex 4mg 4 mg PO DAILY 03/24/17 11/07/20 History tablet] hydrOXYzine HCL [Hydroxyzine HCl] 25 mg PO Q4HP PRN 03/24/17 11/07/20 History risperiDONE [Risperidone] 3 mg PO HS 03/24/17 11/07/20 History acetaminophen 500 mg tablet 500 mg PO Q8HP PRN tab 04/11/17 11/07/20 History promethazine 25 mg tablet 25 mg PO Q6H PRN 04/11/17 11/07/20 History Oxybutynin Chloride [Ditropan Xl] 10 mg PO DAILY 09/25/19 11/07/20 History buPROPion HCL [Bupropion Xl] 300 mg PO DAILY 09/25/19 11/07/20 History Aspirin See Rx Instructions .ROUTE .COMPLEX 11/07/20 11/07/20 History Loperamide HCl [Loperamide] 2 mg PO Q6 PRN 11/07/20 11/07/20 History Mag Hydrox/Aluminum Hyd/Simeth 30 ml PO Q4-6H 11/07/20 11/07/20 History [Antacid-Antigas Liquid] Nystatin [Nystatin Oint 100,000 15 gm TP NEEDED PRN 11/07/20 11/07/20 History Units/GM 15GM] bisoproloL fumarate [Zebeta 5mg 5 mg PO DAILY 11/07/20 11/07/20 History tablet] Allergies Allergy/AdvReac Type Severity Reaction Status Date / Time No Known Allergies Allergy Verified 04/21/18 14:50 Exam - Constitutional Constitutional:: Present: no acute distress, comfortable - HENMT Exam HENMT: Present: normocephalic - Eye Exam Eyes:: Present: normal appearance both eyes and related structures - Neck Exam Neck:: Present: normal visual inspection - Respiratory Exam Respiratory:: Present: able to speak in complete sentences, lungs clear, normal breath sounds, no respiratory distress. Absent: crackles, wheezing - Cardiovascular Exam Cardiac:: Present: S1, S2 - GI Exam GI:: Present: soft, no hepatosplenomegaly - Skin Exam Skin: Present: warm, no rash - Neurological Exam Neurological: Present: alert, awake, normal cognition - Extremities Exam Extremities: Present: no cyanosis, no clubbing Internal Medicine - CN: Reslt - Labs CBC & Chem 7: 11/07/20 13:35 11/07/20 13:35 Labs: Short CBC 11/07/20 Range/Units 13:35 WBC 10.5 (4.8-10.8) K/mm3 Hgb 13.4 (12.2-16.2) g/dL Hct 39.0 (37.0-47.0) % Plt Count 125 L (142-424) K/mm3 BMP 11/07/20 13:35
--- NOTE | 2020-11-08 12:01 | P.CONPHA_ITS ---
[facility] Pharmacy VTE Monitoring - Patient Demographics Admission date: 11/07/20 Report Date: 11/08/20 Time: 12:01 Allergies/Adverse Reactions: Patient Allergies No Known Allergies Allergy (Verified 04/21/18 14:50) Height: 1.75 m Weight: 88.961 kg Patient Problems: Current Active Problems HTN (hypertension) (Acute) Abscess of back (Acute) Hypotension (Acute) COVID-19 virus infection (Acute) Pneumonia (Acute) Tobacco use (Acute) Overweight (BMI 25.0-29.9) (Acute) Schizophrenia (Chronic) - VTE Risk Labs: VTE Related Lab Results Hgb 13.4 g/dL (12.2-16.2) 11/07/20 13:35 Hct 39.0 % (37.0-47.0) 11/07/20 13:35 Plt Count 125 K/mm3 (142-424) L 11/07/20 13:35 BUN 16 mg/dl (7-17) 11/07/20 13:35 Creatinine 1.10 mg/dl (0.52-1.04) H 11/07/20 13:35 Estimated Creat Clear 59 mL/min (50-200) 11/07/20 13:35 Was VTE Risk Assessment Performed: Yes VTE Score: 3 VTE Risk Level: Low Risk Clinical Trial Participant: No - Prophylaxis VTE Prophylaxis Ordered?: Yes Types of VTE Prophylaxis: TEDS Knee High
--- NOTE | 2020-11-08 13:02 | P.PN_ITS ---
Subjective Patient reports: no new complaints Progress Note: A&P (1) Abscess of back Status: Acute Assessment and plan: Complex abscess status post spontaneous drainage with superficial debridement of necrotic tissue yesterday. Continue antibiotics as per primary service Continue twice daily dry dressing changes for now May require additional debridement May require VAC dressing in near future (pending response to dry dressing changes) (2) COVID-19 virus infection Status: Acute (3) Tobacco use Status: Acute (4) Overweight (BMI 25.0-29.9) Status: Acute (5) HTN (hypertension) Status: Acute (6) Schizophrenia Status: Chronic Exam Vital signs and Labs for Last 24 Hours: Temp Pulse Resp BP Pulse Ox 99.2 F 62 18 160/72 H 95 11/08/20 11:47 11/08/20 11:47 11/08/20 11:47 11/08/20 11:47 11/08/20 11:47 Laboratory Results - last 24 hr 11/07/20 13:35: WBC 10.5, RBC 4.21, Hgb 13.4, Hct 39.0, MCV 92.7, MCH 31.8 H, MCHC 34.3, RDW 13.3, Plt Count 125 L, MPV 8.7, Neut % (Auto) 84.6 H, Lymph % (Auto) 11.2, [place] % (Auto) 3.9, Eos % (Auto) 0.1, Baso % (Auto) 0.2, Neut # (Auto) 8.9 H, Lymph # (Auto) 1.2, [place] # (Auto) 0.4, Eos # (Auto) 0.0, Baso # (Auto) 0.0 11/07/20 13:35: Sodium 136, Potassium 3.3 L, Chloride 100, Carbon Dioxide 28, Anion Gap 11.3, BUN 16, Creatinine 1.10 H, Estimated Creat Clear 59, Estimated GFR 51 L, Est GFR ( Amer) 62, Glucose 85, Calcium 8.3 L, Total Bilirubin 0.8, AST 56 H, ALT 33, Alkaline Phosphatase 88, Total Protein 6.5, Albumin 3.2 L , Globulin 3.3 H, Albumin/Globulin Ratio 1.0 L 11/07/20 13:35: Lactate 1.2 11/07/20 14:12: SARS-CoV-2 (PCR) Detected A, Influenza A Untype (PCR) Not detected, Influenza Type B (PCR) Not detected I & O for Last 24 hours: Intake & Output 11/06/20 11/07/20 11/08/20 11/09/20 11:59 11:59 11:59 11:59 Intake Total 2280 / 2280 Balance 2280 / 2280 Weight 196 lb 2 oz Microbiology Reports for the Last 24 Hours: Microbiology 11/07/20 13:30 Shoulder,Right Gram Stain - Final 11/07/20 13:30 Shoulder,Right Wound Culture - Preliminary - Constitutional no acute distress - *Routine Respiratory Exam Absent: respiratory distress - *Routine Cardiovascular Exam Present: RRR - *Routine Skin Exam Comments: Right upper back/scapular region wound margin clean. Moderate focal cellulitis with no sign of recent spread.
--- NOTE | 2020-11-08 16:27 | PC.NURSE ---
SHE IS AOX4, ABLE TO MAKE NEEDS KNOWN TO STAFF, DSG CHANGED PER ORDER C/D/I. MINIMAL SEROSANGUINEOUS DRAINAGE NOTED RED IN COLOR. HER VITAL SIGNS HAVE BEEN STABLE T/O SHIFT, MEDICATED WITH TYLENOL PER MAR FOR PAIN WITH GOOD EFFECTIVENESS. SHE DOES NOT REQUIRE O2 SUPPORT AT THIS TIME. TOLERATING DIET WELL, NO N/V/D NOTED THIS SHIFT. HAS RESTED IN BED FOR MOST OF SHIFT, USING BEDSIDE COMMODE FOR ELIMINATION. NO NEEDS AT THIS TIME.
--- NOTE | 2020-11-08 17:26 | HMH.ACPN2 ---
Internal Medicine - PN: Subj *Date: 11/08/20 *Time: 09:00 Interval history: pt states she feels well Exam Vital signs and Labs for Last 24 Hours: Temp Pulse Resp BP Pulse Ox 98.9 F 66 19 139/79 96 11/08/20 16:00 11/08/20 16:00 11/08/20 16:00 11/08/20 16:00 11/08/20 16:00 I & O for Last 24 hours: Intake & Output 11/06/20 11/07/20 11/08/20 11/09/20 11:59 11:59 11:59 11:59 Intake Total 2280 / 2280 240 / 240 Balance 2280 / 2280 240 / 240 Weight 196 lb 2 oz 196 lb 3.382 oz Microbiology Reports for the Last 24 Hours: Microbiology 11/07/20 13:30 Shoulder,Right Gram Stain - Final 11/07/20 13:30 Shoulder,Right Wound Culture - Preliminary - Constitutional no acute distress - *Routine HEENT Exam Head: Present: normocephalic Eye: Present: PERRL ENT: Present: mucous membranes moist - *Routine Neck Exam Present: supple. Absent: lymphadenopathy - *Routine Respiratory Exam Present: CTA bilaterally - *Routine Cardiovascular Exam Present: RRR - *Routine Abdominal Exam Present: soft, normoactive bowel sounds. Absent: tenderness - *Routine Extremities Exam Absent: cyanosis, clubbing, edema - *Routine Skin Exam Present: warm, wounds. Absent: rash Comments: dressing in place - *Routine Neurological Exam Present: alert Assessment and Plan (1) Abscess of back Status: Acute Category: Medical Code(s): L02.212 - Cutaneous abscess of back [any part, except buttock] (2) COVID-19 virus infection Status: Acute Category: Medical Code(s): U07.1 - COVID-19 (3) Tobacco use Status: Acute Category: Social Hx Code(s): Z72.0 - Tobacco use (4) Overweight (BMI 25.0-29.9) Status: Acute Category: Medical Code(s): E66.3 - Overweight (5) HTN (hypertension) Status: Acute Qualifiers: Hypertension type: primary hypertension Qualified Code(s): I10 - Essential (primary) hypertension Category: Medical Code(s): I10 - Essential (primary) hypertension (6) Schizophrenia Status: Chronic Qualifiers: Schizophrenia type: unspecified Qualified Code(s): F20.9 - Schizophrenia, unspecified Category: Medical Code(s): F20.9 - Schizophrenia, unspecified - Assessment and plan all Dx Assessment and Plan for all problems:: discussed with kings ku rounded earlier all orders per dr ku
--- NOTE | 2020-11-08 19:37 | PC.NURSE ---
patient has a temp of 102.9. The nurse was notified.
[2020-11-09 03:29] VITALS: BP 126/72; PULSE 66; RESP 20; TEMP 37.7; O2SAT 95
[2020-11-09 04:35] VITALS: BMI 29.5
--- NOTE | 2020-11-09 05:37 | PC.NURSE ---
Patient febrile of 102.9 at beginning of shift; administered Tylenol and fever reduced to 99.7 at midnight and 0400; Tylenol administered again at 0500 per patient request; Dressing changed to right upper shoulder per orders. No s/s of acute distress noted, call light within reach, bed at lowest level for safety; will continue to monitor.
[2020-11-09 05:46] LABS: Basophils % 0.3 % (0.1-2.0); Eosinophils % 0.1 % (0.1-12.0); Hematocrit 33.6 % (37.0-47.0); Hemoglobin 11.9 g/dL (12.2-16.2); Lymphocytes # 0.6 K/mm3 (0.7-4.5); Lymphocytes % 18.3 % (10-50); Mean Corpuscular HGB Conc 35.3 g/dL (31.8-35.4); Mean Corpuscular Hemoglobin 32.7 pg (27.0-31.2); Mean Corpuscular Volume 92.8 fl (81-99); Mean Platelet Volume 8.8 fl (7.4-10.4); Monocytes # 0.2 K/mm3 (0.1-1.0); Neutrophils # 2.4 K/mm3 (1.8-7.8); Neutrophils % 74.4 % (37.0-80.0); Platelet Count 88 K/mm3 (142-424); Red Blood Count 3.62 M/mm3 (4.20-5.40); White Blood Count 3.2 K/mm3 (4.8-10.8)
[2020-11-09 07:49] VITALS: BP 121/54; PULSE 66; RESP 19; TEMP 37.4; O2SAT 95
[2020-11-09 08:00] VITALS: O2SAT 95
--- NOTE | 2020-11-09 09:34 | HMH.DCSUM ---
General - General Admission date:: 11/07/20 Discharge date: 11/09/20 HPI HPI: this patient is from local [facility]-pt has progressive pain and drainage from scapular infection -pt has 4 open areas noted on R scapula that pt states has been present for approx 2-3 weeks. Pt states area began as a boil and just got worse . Pt states area is painful. Redness surrounding open areas, yellow drainage noted. Pt states unknown fevers. The patient is brought in by Dr. Joseph from [facility]. He reports patient has a large abscess on her right scapular area and will need intravenous vancomycin, admission, and surgical consultation. Patient states she has had pain in that area for 2 weeks. She denies fever. No injury to that area. She is not diabetic. She has been vaccinated against COVID-19. pt was admitted for ivf and abx and surg consult - Hospital Course Hospital Course: Laboratory Tests 11/07/20 11/07/20 11/07/20 13:35 13:35 13:35 WBC 10.5 RBC 4.21 Hgb 13.4 Hct 39.0 MCV 92.7 MCH 31.8 H MCHC 34.3 RDW 13.3 Plt Count 125 L MPV 8.7 Neut % (Auto) 84.6 H Lymph % (Auto) 11.2 [place] % (Auto) 3.9 Eos % (Auto) 0.1 Baso % (Auto) 0.2 Neut # (Auto) 8.9 H Lymph # (Auto) 1.2 [place] # (Auto) 0.4 Eos # (Auto) 0.0 Baso # (Auto) 0.0 Sodium 136 Potassium 3.3 L Chloride 100 Carbon Dioxide 28 Anion Gap 11.3 BUN 16 Creatinine 1.10 H Estimated Creat Clear 59 Estimated GFR 51 L Est GFR ( Amer) 62 Glucose 85 Lactate 1.2 Calcium 8.3 L Total Bilirubin 0.8 AST 56 H ALT 33 Alkaline Phosphatase 88 Total Protein 6.5 Albumin 3.2 L Globulin 3.3 H Albumin/Globulin Ratio 1.0 L SARS-CoV-2 (PCR) Influenza A Untype (PCR) Influenza Type B (PCR) 11/07/20 11/09/20 14:12 05:15 WBC 3.2 L D RBC 3.62 L Hgb 11.9 L Hct 33.6 L MCV 92.8 MCH 32.7 H MCHC 35.3 RDW 13.0 Plt Count 88 L D MPV 8.8 Neut % (Auto) 74.4 Lymph % (Auto) 18.3 [place] % (Auto) 7.0 Eos % (Auto) 0.1 Baso % (Auto) 0.3 Neut # (Auto) 2.4 Lymph # (Auto) 0.6 L [place] # (Auto) 0.2 Eos # (Auto) 0.0 Baso # (Auto) 0.0 Sodium Potassium Chloride Carbon Dioxide Anion Gap BUN Creatinine Estimated Creat Clear Estimated GFR Est GFR ( Amer) Glucose Lactate Calcium Total Bilirubin AST ALT Alkaline Phosphatase Total Protein Albumin Globulin Albumin/Globulin Ratio SARS-CoV-2 (PCR) Detected A Influenza A Untype (PCR) Not detected Influenza Type B (PCR) Not detected Microbiology 11/07/20 13:30 Shoulder,Right Gram Stain - Final 11/07/20 13:30 Shoulder,Right Wound Culture - Final Staphylococcus aureus Ordering Physician: Abdon Arciniega MD Date of Service: 11/07/20 Procedure(s): XR chest portable Accession Number(s): [id number] cc: Zak Peterson MD; Jenaro Joseph MD~ PROCEDURE: XR CHEST PORTABLE CLINICAL HISTORY: covid +, cough COMPARISON: DX CXR2 XR chest AP from 03/24/2017 CR CXR2V XR chest 2V from 03/26/2017 CR XR CHEST 2V from 09/24/[address] CHEST WO CON from 09/24/2019 FINDINGS: The cardiomediastinal silhouette and pulmonary vascularity are within normal limits. Consolidation is present in the left lower lobe consistent with pneumonia. There is a partially calcified nodule in the right upper lobe. No evidence of pneumothorax. No acute bony abnormalities. IMPRESSION: Left lower lobe pneumonia surgery consult:Assessment and Plan (1) Abscess of back Status: Acute Category: Medical Code(s): L02.212 - Cutaneous abscess of back [any part, except buttock] Superficial debridement of marginal necrosis with transection of small skin bridge resulting in 2 separate openings (as opposed to 3). The entire wound was packed with dry
--- NOTE | 2020-11-09 09:58 | PC.NURSE ---
PT HAS TWO OPEN WOUNDS TO HER RIGHT SHOULDER/SCAPULA REGION FOLLOWING AN I&D PERFORMED BY DR DIALLO. DR DIALLO HAS ORDERED BID DRY DSG CHANGES BE CONTINUED UPON HER DISCHARGE FROM THE HOSPITAL. THE FIRST WOUND IS 5 1/2 CM LONG AND 1 CM AT WIDEST POINT AND THE SECOND IS [id number]. FOR DRESSING CHANGE TODAY DRY 4X4'S WERE PLACED OVER WOUND AND COVERED WITH AN ABD PAD. THE ABD PAD WAS THE SECURED WITH SOFT MEDIPORE TAPE.
--- NOTE | 2020-11-09 10:53 | HMH.PTEV ---
Physical Therapy Evaluation Rehab PT IP Evaluation Start: 11/09/20 09:42 Freq: ONCE Status: Active Protocol: Document 11/09/20 10:46 MAURICIO (Rec: 11/09/20 10:53 MAURICIO [id number]) Subjective/History History History Pt is 60 year old female admitted to [facility] for scapular abscess. Pt states she is independent and lives in personal fpc. Pt reports no prior use of AD before admittance to [facility]. Eval completed by JAYNA Nagy . Subjective Subjective Pt reports feeling well this morning. Rehab PT IP Eval Objective Appearance Patient Behavior Appropriate,Cooperative Patient Orientation Place,Name,Birthday,Year Difficulty following instructions none Speech Pattern Clear,Appropriate,Coherent Ambulation Patient Able to Ambulate Yes Ambulation Observation IP General Gait Pattern Observation No Deviations/Normal Ambulation Distance (feet) 20 Ambulation Assistive Device None Ambulation Ability Independent Balance Ability to Arise Able, w/o using arms Sitting Balance Steady, safe Standing Balance Steady, wide stance Dynamic Sitting Balance Ability Normal Dynamic Standing Balance Ability Normal Transfers Bed Transfer Ability Independent Sit to Stand Bed Transfer Ability Independent ROM All Extremities PT ROM Status WFL MMT All Extremities PT MMT WFL Rehab PT IP prob,goals,plan Problems Date of Evaluation: 11/09/20 Discharge Plan PT Discharge Plan Pt is independent and safe to d/c to personal fpc when medically stable. Pt is ambulating in room at [facility]. G -code Required No Eval Complexity Eval Charge Codes 93512 - Low Complexity PHYSICIAN CERTIFICATION: I certify the specified therapy services for Yolanda Mosley are required, authorized, and reviewed every 30 days.
--- NOTE | 2020-11-09 11:07 | HMH.OTEV ---
OT Inpatient Evaluation Rehab OT IP Evaluation Start: 11/09/20 09:44 Freq: ONCE Status: Complete Protocol: Document 11/09/20 11:02 RIVKADRAGAN (Rec: 11/09/20 11:07 TERESITA [id number]) Rehab OT IP Assessment Subjective History *Admission Date: 11/07/20 *Chief complaint: skin infection this patient is from local [facility]-pt has progressive pain and drainage from scapular infection -pt has 4 open areas noted on R scapula that pt states has been present for approx 2-3 weeks. Pt states area began as a boil and just got worse . Pt states area is painful. Redness surrounding open areas, yellow drainage noted. Pt states unknown fevers. The patient is brought in by Dr. Joseph from [facility]. He reports patient has a large abscess on her right scapular area and will need intravenous vancomycin, admission, and surgical consultation. Patient states she has had pain in that area for 2 weeks. She denies fever . No injury to that area. She is not diabetic. She has been vaccinated against COVID- 19. pt was admitted for ivf and abx and surg consult - [facility] History I have reviewed the patient's past medical history: Yes Medical History: Reports:: Anxiety, Cerebrovascular Accident, Transient Ischemic Attacks (TIA) Subjective I can get up. Analysis Patient safety awareness during transfers, bed mobility, ambulation within room and ADL task. Patient completed all tasks independently with no LOB noted. Patient was independent
--- NOTE | 2020-11-09 11:27 | HMH.PULMPN ---
Internal Medicine - PN: Subj *Date: 11/09/20 *Time: 11:27 Interval history: No acute respiratory events overnight patient continued to remain on room air she denies any new complaints Exam - Constitutional Constitutional:: Present: no acute distress, comfortable - HENMT Exam HENMT: Present: normocephalic, atraumatic - Eye Exam Eyes:: Present: normal appearance both eyes and related structures - Neck Exam Neck:: Present: normal visual inspection - Respiratory Exam Respiratory:: Present: able to speak in complete sentences, lungs clear, normal breath sounds, no respiratory distress. Absent: crackles, wheezing - Cardiovascular Exam Cardiac:: Present: S1, S2 - GI Exam GI:: Present: soft - Skin Exam Skin: Present: warm, no rash - Neurological Exam Neurological: Present: alert, awake, normal cognition - Extremities Exam Extremities: Present: no cyanosis, no clubbing, no edema Assessment and Plan (1) Abscess of back Status: Acute Category: Medical Code(s): L02.212 - Cutaneous abscess of back [any part, except buttock] (2) COVID-19 virus infection Status: Acute Category: Medical Code(s): U07.1 - COVID-19 (3) Tobacco use Status: Acute Category: Social Hx Code(s): Z72.0 - Tobacco use (4) Overweight (BMI 25.0-29.9) Status: Acute Category: Medical Code(s): E66.3 - Overweight (5) HTN (hypertension) Status: Acute Qualifiers: Hypertension type: primary hypertension Qualified Code(s): I10 - Essential (primary) hypertension Category: Medical Code(s): I10 - Essential (primary) hypertension (6) Schizophrenia Status: Chronic Qualifiers: Schizophrenia type: unspecified Qualified Code(s): F20.9 - Schizophrenia, unspecified Category: Medical Code(s): F20.9 - Schizophrenia, unspecified - Assessment and plan all Dx Assessment and Plan for all problems:: #COVID-19 pneumonia: 60-year-old no prior respiratory complaints not on oxygen or inhaler therapy presented hospital evaluate for her scapular region abscess and found to be COVID-19 positive on routine screening. Patient denies any respiratory complaints. Given patient baseline respiratory status and COVID-19 PCR positive on routine surveillance patient baseline respiratory symptoms and on room air saturating 98% patient received Regen-CoV infusion. We'll continue respiratory isolation for 10 days No need for steroids or remdesivir to manage her COVID-19 pneumonia. Chest x-ray showed left lower lobe consolidation, and was initiated on levofloxacin to complete a 5-day course along with incentive spirometry Patient respiratory status continued to remain stable. Chest clear to auscultate, saturating 98% on room air. Denies any respiratory distress. She continued to receive levofloxacin Thank you for involving pulmonary in this patient care. We'll follow the patient in 4 weeks early questions or concerns
--- NOTE | 2020-11-09 12:49 | PC.NURSE ---
1245: SPOKE WITH PHARMACY. NOTIFIED THEM THAT PATIENT DOES NOT HAVE IV ACCESS AND PATIENT IS DISCHARGING SOON. IS IT OK TO GIVE PO DOSE INSTEAD OF IV DOSE. GIULIANO STATED SHE WOULD SWITCH DOSE TO PO.
[2020-11-09 14:16] LABS: Anion Gap 10.3 mEq/L (5-15); Blood Urea Nitrogen 6 mg/dl (7-17); Calcium 7.8 mg/dl (8.4-10.2); Carbon Dioxide 25 mmol/L (22.0-30.0); Chloride 109 mmol/L (98-107); Creatinine Clearance Estimated 173 mL/min (50-200); Estimated Glomerular Filt Rate 126 ml/min (>60); GFR (African American) 153 ML/MIN (>60); Glucose 105 mg/dl (74-100); Potassium 3.3 mmoL/L (3.5-5.1); Sodium 141 mmol/L (136-145)
[2020-11-09 14:23] LABS: Vancomycin,Trough < 5.0 ug/mL (5.0-10.0)
--- NOTE | 2020-11-09 15:11 | PC.NURSE ---
SPOKE WITH DOMINIK RODRIGUEZ WHO STATED THAT DISCHARGE INFORMATION WAS RECEIVED VIA FAX. INCLUDED INFORMATION WAS D/C SUMMARY AND INSTRUCTIONS FOR FOLLOW UP APPOINTMENTS AND WOUND CARE.
== END 2020-11-09 15:00 | disposition home or self-care (01) ==
LOC: ER 13:46 → ICU 15:39
PROVIDERS: Nurse Practitioner Family; Admitting Provider Emergency Medicine; Emergency Provider Emergency Medicine; PCP Emergency Medicine; Visit Provider Emergency Medicine
DX: L02.212 Cutaneous abscess of back [any part, except buttock and flank] (principal); U07.1 COVID-19; F20.9 Schizophrenia, unspecified; I10 Essential (primary) hypertension; F17.210 Nicotine dependence, cigarettes, uncomplicated
CPT/HCPCS: 36415; 71045; 80048; 80053; 80202; 83605; 85025; 87040; 87070; 87186; 87205; 96365; 96367; 97161; 97165; 99284; G0378; J1956; J3370; U0003

== ENCOUNTER → 2023-01-01 15:30 | Outpatient (CLI) | payer MEDICAID, SELFPAY ==
--- NOTE | 2023-01-01 15:33 | MM_ITS ---
PROCEDURE INFORMATION: Exam: MG Bilateral Screening 3D Mammography Exam date and time: 01/01/2023 3:40 PM Age: 62 years old Clinical indication: Screening. No family history of breast cancer. TECHNIQUE: Imaging protocol: Bilateral Screening tomosynthesis and 2D mammography including computer-aided detection (CAD) when performed. COMPARISON: No relevant prior studies available. If prior mammograms are provided, I am happy to add an addendum. FINDINGS: MAMMOGRAPHY: Breast composition: There are scattered areas of fibroglandular density. Mass: Question 0.3 cm oval masses/circumscribed asymmetries bilaterally, seen in the CC projections, right outer 9 cm from the nipple and right inner 8 cm from the nipple CC frame 13; as well as left outer 10 cm from the nipple and left inner 9-10 cm from the nipple,CC frame 10. Architectural distortion: None. Calcifications: Two questionable groupings of calcifications in the right upper outer quadrant middle and posterior 3rd. Asymmetric density: None. Skin thickening: None. Axillary adenopathy: None. IMPRESSION: Comparison to prior mammogram will be most helpful. If this is not provided within 2 weeks, patient will be recalled for right diagnostic mammography in CC and true lateral for further evaluation of questionable right breast calcifications and right sonography for further evaluation of questionable bilateral sub cm masses. ASSESSMENT: BI-RADS Category 0: Incomplete- Need Additional Imaging Evaluation and/or Prior Mammograms for Comparison
== END ==
PROVIDERS: PCP Emergency Medicine; Visit Provider Obstetrics & Gynecology
DX: Z12.31 Encounter for screening mammogram for malignant neoplasm of breast (principal)
CPT/HCPCS: 77063; 77067

== ENCOUNTER → 2023-02-20 13:17 | Outpatient (CLI) | payer MEDICAID, SELFPAY ==
--- NOTE | 2023-02-20 13:17 | MM_ITS ---
PROCEDURE INFORMATION: Exam: US Right Breast, Complete MG Right Diagnostic Breast Tomosynthesis Exam date and time: 02/20/2023 1:17 PM Age: 62 years old Clinical indication: Patient recalled on the basis of a screening mammogram for further evaluation for questionable masses or circumscribed asymmetries in the outer breasts and questionable groupings of calcifications in the right upper outer quadrant middle and posterior 3rd. TECHNIQUE: Imaging protocol: Complete ultrasound of all four quadrants of the right breast and the retroareolar regions, including ultrasound of the axilla when performed. Right Diagnostic tomosynthesis and 2D mammography including computer-aided detection (CAD) when performed. Unilateral or bilateral exam. COMPARISON: MG MM DIG SCREENING MAMM BI W/CAD 01/01/2023 3:40 PM FINDINGS: MAMMOGRAPHY: On the right, oval 0.4 cm mass is persist in the lower inner quadrant, middle to posterior 3rd, 9 cm from the nipple and in the upper outer quadrant middle 3rd, 6-7 cm from the nipple. No suspicious asymmetry or architectural distortion. On the right, grouping of punctate and possibly linear calcifications of varying density. in the upper outer quadrant middle 3rd. (no calcifications persist in the upper outer quadrant posterior 3rd). On the left, no persistent masses or asymmetry in the outer inner breast. ULTRASOUND: Right sonography, all 4 quadrants, retroareolar and axilla. No sonographic findings demonstrated. IMPRESSION: See comments On the right, suggest stereotactic biopsy for indeterminate grouping of calcifications in the right upper outer quadrant, middle third. (if any prior mammography is provided, I am happy to an addendum). On the right, probably benign oval mammographic masses in the lower inner and upper outer quadrants, with no sonographic correlate, suggest six-month follow-up right diagnostic mammogram unless otherwise clinically indicated. On the left, no persistent mammographic masses, patient will be recalled for left sonography with attention to the outer breast 10 cm from the nipple and inner breast 9-10 cm from the nipple. ASSESSMENT: BI-RADS Category 4: Suspicious
== END ==
PROVIDERS: PCP Emergency Medicine; Visit Provider Obstetrics & Gynecology
DX: N63.10 Unspecified lump in the right breast, unspecified quadrant (principal)
CPT/HCPCS: 76641; 77061; 77065; G0279

== ENCOUNTER 2023-09-01 14:03 | Outpatient (CLI) | payer MEDICAID, SELFPAY ==
--- NOTE | 2023-09-01 14:04 | MM_ITS ---
PROCEDURE INFORMATION: Exam: US Left Breast, Complete MG Right Diagnostic Breast Tomosynthesis Exam date and time: 09/01/2023 3:00 PM Age: 63 years old Clinical indication: Short-term radiographic followup; Right breast; masses and calcifications TECHNIQUE: Imaging protocol: Complete ultrasound of all four quadrants of the left breast and the retroareolar regions, including ultrasound of the axilla when performed. Right Diagnostic tomosynthesis and 2D mammography including computer-aided detection (CAD) when performed. Unilateral or bilateral exam. COMPARISON: MG MM DIG SCREENING MAMM BI W/CAD 01/01/2023 3:40 PM FINDINGS: MAMMOGRAPHY: Breast composition: There are scattered areas of fibroglandular density. Breast mammogram findings: There is no stellate mass, architectural distortion or suspicious microcalcifications to suggest malignancy. Stable 0.4 cm masses in the middle third of the right medial breast and in the middle third of the right upper outer quadrant. No suspicious microcalcifications on routine and magnification views on the current examination. No skin thickening or axillary adenopathy. ULTRASOUND: Breast ultrasound findings: Sonographic images of the right breast including the retroareolar region, all 4 quadrants and the axilla do not demonstrate any solid or cystic masses. No architectural distortion or acoustical shadowing. No skin thickening or axillary adenopathy. IMPRESSION: 1. Stable probably benign subcentimeter nodularity in the right breast compared to prior mammogram dated 02/20/2023. Six-month follow-up diagnostic bilateral mammogram is recommended for continued close surveillance as well as part of an annual screening schedule 2. No suspicious microcalcifications. ASSESSMENT: BI-RADS Category 3: Probably benign.
== END 2023-09-01 23:59 | disposition home or self-care (01) ==
LOC: RAD 14:04
PROVIDERS: PCP Internal Medicine; Visit Provider Obstetrics & Gynecology
DX: R92.8 Other abnormal and inconclusive findings on diagnostic imaging of breast (principal); N63.11 Unspecified lump in the right breast, upper outer quadrant
CPT/HCPCS: 76641; 77061; 77065; G0279

== ENCOUNTER 2024-07-08 10:33 | Outpatient (CLI) | payer MEDICAID, SELFPAY ==
--- NOTE | 2024-07-08 10:36 | MM_ITS ---
PROCEDURE INFORMATION: Exam: MG Bilateral Screening 3D Mammography Exam date and time: 07/08/2024 10:51 AM Age: 64 years old Clinical indication: Screening examination TECHNIQUE: Imaging protocol: Bilateral Screening tomosynthesis and 2D mammography including computer-aided detection (CAD) when performed. COMPARISON: 1. MG MM DIG MAMM DX UNILAT RT CAD 09/01/2023 2:25 PM 2. MG MM DIG MAMM DX UNILAT RT CAD 02/20/2023 1:17 PM FINDINGS: MAMMOGRAPHY: Breast composition: The breasts are almost entirely fatty. Mass: None. Architectural distortion: None. Calcifications: No suspicious calcifications. Asymmetric density: None. Skin thickening: None. Axillary adenopathy: None. IMPRESSION: No mammographic evidence of malignancy. Annual screening is recommended unless otherwise clinically indicated. ASSESSMENT: BI-RADS Category 1: Negative.
== END 2024-07-08 23:59 | disposition home or self-care (01) ==
LOC: RAD 10:34
PROVIDERS: PCP Nurse Practitioner Family; Visit Provider Nurse Practitioner Family
DX: Z12.31 Encounter for screening mammogram for malignant neoplasm of breast (principal)
CPT/HCPCS: 77063; 77067

== ENCOUNTER 2024-09-08 11:12 | Outpatient (CLI) | payer MEDICAID, SELFPAY ==
[2024-09-08 11:32] LABS: Hematocrit 39.0 % (37.0-47.0); Hemoglobin 13.6 g/dL (12.2-16.2); Immature Granulocytes % 0 %; Mean Corpuscular HGB Conc 34.9 g/dL (31.8-35.4); Mean Corpuscular Hemoglobin 32.8 pg (27.0-31.2); Mean Corpuscular Volume 94.0 fl (81-99); Nucleated Red Blood Cells % 0 %; Platelet Count 65 K/mm3 (142-424); Red Blood Count 4.15 M/mm3 (4.20-5.40); Red Cell Distribution Width-SD 42.5 fL; White Blood Count 2.7 K/mm3 (4.8-10.8)
[2024-09-08 12:49] LABS: Vitamin B12 295 pg/mL (239-931)
[2024-09-08 13:06] LABS: Folate 12.40 ng/mL
[2024-09-08 13:08] LABS: Total Cells Counted 100
[2024-09-08 13:09] LABS: RBC Morphology Normal
== END 2024-09-08 23:59 | disposition home or self-care (01) ==
LOC: LAB 11:13
PROVIDERS: Visit Provider Internal Medicine Medical Oncology
DX: D69.6 Thrombocytopenia, unspecified (principal); D72.819 Decreased white blood cell count, unspecified
CPT/HCPCS: 36415; 82607; 82746; 85007; 85025; 85027

== ENCOUNTER 2024-09-17 11:00 | Outpatient (CLI) | payer MEDICAID, SELFPAY | END 2024-09-17 23:59 | disposition home or self-care (01) | PROVIDERS: Visit Provider Internal Medicine Medical Oncology | DX: D72.819 Decreased white blood cell count, unspecified (principal) | CPT/HCPCS: 36415; 83090; 83921 ==